=== PATIENT | female | born 1945 | race Caucasian/White ===

== ENCOUNTER 2019-12-03 08:59 | Outpatient (CLI) | payer MEDICARE, SELFPAY ==
[2019-12-03 09:16] LABS: Basophils Absolute Auto 0.1 K/mm3 (0.0-0.1); Basophils Percent Auto 1.5 % (0.2-1.2); Eosinophils Absolute Auto 0.2 K/mm3 (0-0.3); Eosinophils Percent Auto 3.6 % (0-4.4); Hemoglobin 14.9 g/dL (12.0-15.0); Immature Granulocyte Absolute 0.01 K/mm3 (0.00-0.031); Immature Granulocyte Percent A 0.2 % (0-0.5); Lymphocytes Absolute Auto 1.48 K/mm3 (0.9-3.2); Lymphocytes Percent Auto 27.7 % (18.3-44.2); Mean Corpuscular HGB Conc 32.4 g/dl (32-36); Mean Corpuscular Hemoglobin 32.7 pg (26-34); Mean Corpuscular Volume 101.1 fl (80-100); Mean Platelet Volume 9.9 fl (7.4-10.4); Monocytes Absolute Auto 0.6 K/mm3 (0.1-0.6); Monocytes Percent Auto 11.6 % (2.6-8.5); Neutrophils Percent Auto 55.4 % (45.5-73.1); Platelet Count Result 179 k/mm3 (150-375); Red Blood Count 4.55 M/mm3 (4.2-5.4); Red Cell Distribution Width 13.7 % (11.5-14.5); White Blood Count 5.3 K/mm3 (4.5-10.0)
[2019-12-03 09:19] LABS: Blood Urea Nitrogen 19 mg/dL (8-26); Carbon Dioxide 25 mmol/L (22-30); Chloride 108 mmol/L (98-109); Estimated Glomerular Filt Rate 54; Glucose 83 mg/dL (70-105); Potassium 3.9 mmol/L (3.5-4.9); Sodium 142 mmol/L (138-146)
== END 2019-12-03 09:00 | disposition home or self-care (01) ==
LOC: ANHLAB 09:01
PROVIDERS: Visit Provider Internal Medicine Hematology & Oncology
DX: D75.1 Secondary polycythemia (principal)
CPT/HCPCS: 36415; 80048; 85025

== ENCOUNTER 2020-12-01 10:23 | Outpatient (CLI) | payer MEDICARE, SELFPAY ==
[2020-12-01 10:39] LABS: Basophils Absolute Auto 0.1 K/mm3 (0.0-0.1); Basophils Percent Auto 1.5 % (0.2-1.2); Eosinophils Absolute Auto 0.2 K/mm3 (0-0.3); Eosinophils Percent Auto 3.4 % (0-4.4); Immature Granulocyte Absolute 0.02 K/mm3 (0.00-0.031); Immature Granulocyte Percent A 0.4 % (0-0.5); Lymphocytes Absolute Auto 1.33 K/mm3 (0.9-3.2); Lymphocytes Percent Auto 25.2 % (18.3-44.2); Mean Corpuscular HGB Conc 33.3 g/dl (32-36); Mean Corpuscular Hemoglobin 33.6 pg (26-34); Mean Corpuscular Volume 100.7 fl (80-100); Monocytes Absolute Auto 0.7 K/mm3 (0.1-0.6); Monocytes Percent Auto 13.3 % (2.6-8.5); Neutrophils Percent Auto 56.2 % (45.5-73.1); Platelet Count Result 184 k/mm3 (150-375); Red Blood Count 4.47 M/mm3 (4.2-5.4); Red Cell Distribution Width 14.3 % (11.5-14.5); White Blood Count 5.3 K/mm3 (4.5-10.0)
[2020-12-01 10:43] LABS: Blood Urea Nitrogen 17 mg/dL (8-26); Carbon Dioxide 28 mmol/L (22-30); Chloride 106 mmol/L (98-109); Estimated Glomerular Filt Rate > 60; Glucose 69 mg/dL (70-105); Sodium 143 mmol/L (138-146)
== END 2020-12-01 10:24 | disposition home or self-care (01) ==
LOC: ANHLAB 10:26
PROVIDERS: Visit Provider Internal Medicine Hematology & Oncology
DX: D75.1 Secondary polycythemia (principal)
CPT/HCPCS: 36415; 80048; 85025

== ENCOUNTER 2021-12-21 11:16 | Outpatient (CLI) | payer MEDICARE, SELFPAY ==
[2021-12-21 11:33] LABS: Basophils Absolute Auto 0.1 K/mm3 (0.0-0.1); Basophils Percent Auto 1.4 % (0.2-1.2); Eosinophils Absolute Auto 0.2 K/mm3 (0-0.3); Eosinophils Percent Auto 2.9 % (0-4.4); Hematocrit 46.3 % (37.0-47.0); Hemoglobin 14.9 g/dL (12.0-15.0); Immature Granulocyte Absolute 0.03 K/mm3 (0.00-0.031); Immature Granulocyte Percent A 0.5 % (0-0.5); Lymphocytes Absolute Auto 1.71 K/mm3 (0.9-3.2); Lymphocytes Percent Auto 30.8 % (18.3-44.2); Mean Corpuscular HGB Conc 32.2 g/dl (32-36); Mean Corpuscular Hemoglobin 33.8 pg (26-34); Mean Platelet Volume 10.3 fl (7.4-10.4); Monocytes Absolute Auto 0.6 K/mm3 (0.1-0.6); Neutrophils Percent Auto 53.4 % (45.5-73.1); Platelet Count Result 159 k/mm3 (150-375); Red Blood Count 4.41 M/mm3 (4.2-5.4); Red Cell Distribution Width 14.6 % (11.5-14.5); White Blood Count 5.6 K/mm3 (4.5-10.0)
[2021-12-21 16:16] LABS: Anion Gap 6 mmol/L (8-16); Blood Urea Nitrogen 20 mg/dL (7-17); Calcium 9.5 mg/dL (8.4-10.2); Carbon Dioxide 25 mmol/L (22-30); Chloride 107 mmol/L (98-107); Estimated Glomerular Filt Rate > 60; Glucose 92 mg/dL (65-110); Potassium 4.1 mmol/L (3.4-5.0); Sodium 138 mmol/L (137-145)
== END 2021-12-21 11:17 | disposition home or self-care (01) ==
PROVIDERS: Visit Provider Internal Medicine Hematology & Oncology
DX: D75.1 Secondary polycythemia (principal)
CPT/HCPCS: 36415; 80048; 85025; 85027

== ENCOUNTER 2022-12-21 10:52 | Outpatient (CLI) | payer MEDICARE, SELFPAY ==
[2022-12-21 11:06] LABS: Hematocrit 45.2 % (37.0-47.0); Hemoglobin 15.1 g/dL (12.0-15.0); Mean Corpuscular HGB Conc 33.4 g/dl (32-36); Mean Corpuscular Volume 104.9 fl (80-100); Mean Platelet Volume 9.5 fl (7.4-10.4); Platelet Count Result 185 k/mm3 (150-375); Red Blood Count 4.31 M/mm3 (4.2-5.4); Red Cell Distribution Width 14.4 % (11.5-14.5); White Blood Count 7.2 K/mm3 (4.5-10.0)
== END 2022-12-21 10:53 | disposition home or self-care (01) ==
LOC: ANHLAB 10:55
PROVIDERS: Visit Provider Internal Medicine Hematology & Oncology
DX: D75.1 Secondary polycythemia (principal)
CPT/HCPCS: 36415; 85027

== ENCOUNTER 2023-12-20 10:46 | Outpatient (CLI) | payer MEDICARE, SELFPAY ==
[2023-12-20 11:02] LABS: Basophils Absolute Auto 0.1 K/mm3 (0.0-0.1); Basophils Percent Auto 1.5 % (0.2-1.2); Eosinophils Absolute Auto 0.2 K/mm3 (0-0.3); Eosinophils Percent Auto 2.5 % (0-4.4); Hematocrit 43.4 % (37.0-47.0); Hemoglobin 14.5 g/dL (12.0-15.0); Immature Granulocyte Absolute 0.02 K/mm3 (0.00-0.031); Immature Granulocyte Percent A 0.3 % (0-0.5); Lymphocytes Absolute Auto 1.51 K/mm3 (0.9-3.2); Lymphocytes Percent Auto 25.5 % (18.3-44.2); Mean Corpuscular HGB Conc 33.4 g/dl (32-36); Mean Corpuscular Hemoglobin 34.9 pg (26-34); Mean Corpuscular Volume 104.6 fl (80-100); Mean Platelet Volume 9.9 fl (7.4-10.4); Monocytes Absolute Auto 0.7 K/mm3 (0.1-0.6); Monocytes Percent Auto 11.6 % (2.6-8.5); Neutrophils Absolute Auto 3.5 K/mm3 (1.3-6.7); Neutrophils Percent Auto 58.6 % (45.5-73.1); Platelet Count Result 161 k/mm3 (150-375); Red Blood Count 4.15 M/mm3 (4.2-5.4); Red Cell Distribution Width 13.7 % (11.5-14.5); White Blood Count 5.9 K/mm3 (4.5-10.0)
[2023-12-20 11:06] LABS: Blood Urea Nitrogen 18 mg/dL (8-26); Carbon Dioxide 25 mmol/L (22-30); Chloride 107 mmol/L (98-109); Estimated Glomerular Filt Rate 54; Glucose 90 mg/dL (70-105); Potassium 4.1 mmol/L (3.5-4.9); Sodium 142 mmol/L (138-146)
== END 2023-12-20 10:47 | disposition home or self-care (01) ==
PROVIDERS: Visit Provider Internal Medicine Hematology & Oncology
DX: D75.1 Secondary polycythemia (principal)
CPT/HCPCS: 36415; 80047; 85025

== ENCOUNTER 2024-12-19 09:38 | Outpatient (CLI) | payer MEDICARE, SELFPAY ==
[2024-12-19 09:51] LABS: Basophils Absolute Auto 0.1 K/mm3 (0.0-0.1); Basophils Percent Auto 1.5 % (0.2-1.2); Eosinophils Absolute Auto 0.2 K/mm3 (0-0.3); Eosinophils Percent Auto 2.9 % (0-4.4); Hematocrit 43.3 % (37.0-47.0); Hemoglobin 14.1 g/dL (12.0-15.0); Immature Granulocyte Absolute 0.02 K/mm3 (0.00-0.031); Immature Granulocyte Percent A 0.3 % (0-0.5); Lymphocytes Absolute Auto 1.36 K/mm3 (0.9-3.2); Lymphocytes Percent Auto 22.1 % (18.3-44.2); Mean Corpuscular HGB Conc 32.6 g/dl (32-36); Mean Corpuscular Hemoglobin 31.5 pg (26-34); Mean Corpuscular Volume 96.9 fl (80-100); Mean Platelet Volume 9.9 fl (7.4-10.4); Monocytes Absolute Auto 0.8 K/mm3 (0.1-0.6); Monocytes Percent Auto 12.9 % (2.6-8.5); Neutrophils Absolute Auto 3.7 K/mm3 (1.3-6.7); Neutrophils Percent Auto 60.3 % (45.5-73.1); Platelet Count Result 204 k/mm3 (150-375); Red Blood Count 4.47 M/mm3 (4.2-5.4); White Blood Count 6.1 K/mm3 (4.5-10.0)
--- OUTSIDE RECORDS SUMMARY | 2024-12-19 09:51 | XMS_ITS | Clinical Summary ---
Author Organization [facility] Address [address] [place] [address] Care Team Providers Care Composition Board Press Operator Name Role Phone Chris Lulu Connor DO Primary Care Provider [phone] Source Comments [facility],non-owned Affiliates and Associated Physician Practices is amultiple site organization consisting of ambulatory clinics and hospital sitesin [place], [place]. This disclosure is being madepursuant to the Care Everywhere program and may not contain all information available regarding this patient. Last updated 18.[facility] Allergies Active Allergy Reactions Criticality Noted Date Comments Alendronic Acid Other High 06/08/2011 SYNCOPE Nsaids Other 03/30/2024 Pineapple Other Low 07/12/2021 Mouth sores Medications * Be aware that medications may not be up to date on this document. Alwaysverify current medications with the patient. Medication Sig Dispensed Refills Start Date End Date Status ticagrelor (BRILINTA) 60 MG tablet Take 1 (one) tablet by mouth 2 times daily Swallow whole. Do not crush, chew, or open capsule. Active Aspirin 81 MG CAPS Take 81 mg by mouth once daily Active rosuvastatin (Crestor) 40 MG tablet 10/02/2022 Active levothyroxine (Synthroid) 88 MCG tablet Take 1 (one) tablet by mouth once daily 08/27/2023 Active ondansetron, disintegrating, (Zofran ODT) 4 MG tablet Take 1 (one) tablet by mouth every 6 hours as needed for Nausea/Vomiting Allow tablet to dissolve on the tongue 10 tablet 11/07/2023 Active Additional Information Patient not taking.Reported on 11/12/2024 acetaminophen (Tylenol) 500 MG capsule Take 2 (two) capsules by mouth every 6 hours as needed for Fever or Pain 30 capsule 11/07/2023 Active triamcinolone acetonide (Kenalog) 0.1 % ointmentIndicati ons:Lichen sclerosus Us with the nystatin ointment to vulvar skin 2-3 a week. 30 g 3 01/21/2024 Active nystatin (Mycostatin) 136672 UNIT/GM ointmentIndicati ons:Lichen sclerosus Use to vulvar skin with the Triamcinolone ointment 0.1% 2-3 times a week 30 g 3 01/21/2024 Active nitroGLYCERIN (Nitrostat) 0.4 MG tablet Dissolve 1 (one) tablet under the tongue as needed Active levothyroxine (Synthroid) 75 MCG tablet Take 1 (one) tablet by mouth once daily 12/01/2024 Active oxyCODONE, immediate release, (Roxicodone) 5 MG tabletIndication s:Postoperative state Take 1 (one) tablet by mouth every 6 hours as needed for Pain 5 tablet 12/16/2024 Active acetaminophen (Tylenol) 500 MG capsule Take 1 (one) capsule by mouth every 4 hours as needed for Fever or Pain 12/16/2024 Active docusate sodium (Colace) 100 MG capsule Take 1 (one) capsule by mouth once daily as needed for Constipation 15 capsule 12/16/2024 Active metoprolol succinate XL 24hr (TOPROL XL) 25 MG tablet Take 1 (one) tablet by mouth once daily 5 Discontinue d(List Clean-Up) HYDROcodone-acet aminophen (Durkee) 5-325 MG tablet 03/28/2024 5 Discontinue d(List Clean-Up) oxyCODONE, immediate release, (Roxicodone) 5 MG tablet Take 1 (one) tablet by mouth every 4 hours as needed 5 Discontinue d(List Clean-Up) Active Problems Problem Noted Date Diagnosed Date 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 03/17/2024 Primary osteoarthritis of right knee 02/26/2024 Venous insufficiency (chronic) (peripheral) 09/2023 Lichen sclerosus et atrophicus of the vulva 11/16 Vulvar cancer 06/08/2021 Postoperative state 06/07/2021 Hx of migraine headaches 05/19/2021 Hyperlipidemia 05/19/2021 Migraine headache 05/19/2021 Rosacea 05/19/2021 Erythrocytosis 11/13/2018 Dyslipidemia 10/22/2017 Essential hypertension 10/22/2017 Atypical chest pain 10/20/2017 Peripheral arterial occlusive disease 04/15/2017 Coronary atherosclerosis 12/20/2015 Dyspnea on exertion 12/20/2015 Hypothyroidism 12/20/2015 Encounters Date Type Department Care Team Description 12/16/2024 7:30 AM CDT Anesthesia Event [facility] [address] [place] [address] Frank Rocha MD 12/16/2024 7:15 AM CDT - 12/16/2024 9:15 AM CDT Surgery [facility] [address] [place] [address] Michael Ferguson MD PARTIAL VULVECTOMY 12/16/2024 5:22 AM CDT - 12/16/2024 10:50 AM CDT Hospital Encounter [facility] [address] [place] [address] Michael Ferguson MD Surgery General Discharge Disposition: Home or Self Care 12/16/2024 Travel 12/11/2024 9:00 AM CDT - 12/11/2024 11:59 PM CDT [facility] [address] [place] [address] Michael Ferguson MD Discharge Disposition: Home or Self Care 12/11/2024 Travel 11/25/2024 Telephone [facility] - SEARCH MANAGER [address] [place] [address] Michael Ferguson MD Surgery Scheduling 11/24/2024 Telephone [facility] - SEARCH MANAGER [address] [place] [phone] Michael Ferguson MD Results 11/12/2024 1:30 PM PIPELINE CONTROLLER Office Visit [facility] - SEARCH MANAGER [address] [place] [phone] Michael Ferguson MD Vulvar cancer (Primary Dx); Lichen sclerosus 11/12/2024 Travel from Last 3 Months Immunizations Name Administration Dates Next Due Covid Pfizer primary monoval ent 12+ yr 0.3mL Purple cap 11/18/2020,10/23/2020 Family History * Patient is adopted Medical History Relation Name Comments CAD (Coronary Artery Disease) Mother Heart Failure Mother Heart Failure Sister pneumonia at a ge 20 Relation Name Status Comments Mother Sister Social History Tobacco Use Types Packs/Day Years Used Date Smoking Tobacco: Former Smokeless Tobacco: Never Tobacco Cessation:Counseling Given: Not Answered Comments:50 YEARS AGO Alcohol Use Standard Drinks/Week Comments Yes 0 (1 standard drink = 0.6 oz pur e alcohol) occ PHQ-2 Answer Date Recorded Patient Health Questionnaire-2 Score 0 01/20/2024 Hunger Vital Sign Answer Date Recorded Within the past 12 months, y ou worried that your food would run out before you got the money to buy more. Never true 04/26/20 22 Within the past 12 months, t he food you bought just didn't last and you didn't have money to get more. Never true 04/26/2022 Sex and Gender Information Value Date Recorded Sex Assigned at Not on file Gender Identity Not on file Sexual Orientation Not on file Last Filed Vital Signs Vital Sign Reading Time Taken Comments Blood Pressure 126/61 12/16/2024 9:40 AM CDT Pulse 60 12/16/2024 9:40 AM CDT Temperature 36.6 C (97.8 F) 12/16/2024 9:10 AM CDT Respiratory Rate 16 12/16/2024 9:40 AM CDT Oxygen Saturation 99% 12/16/2024 9:40 AM CDT Inhaled Oxygen Concentration - - Weight 64 kg (141 lb) 12/16/2024 6:00 AM CDT Height 157.5 cm (5' 2 ) 12/16/2024 6:00 AM CDT Body Mass Index 25.79 12/16/2024 6:00 AM CDT Plan of Treatment Upcoming Encounters Date Type Department Care Team (Late st Contact Info) Description 12/29/2024 3:00 PM CDT Office Visit [facility] - SEARCH MANAGER [address] [place] [phone] Michael Ferguson MD [address] [place] [address] 02/23/2025 10:50 AM CDT Office Visit [facility] - SEARCH MANAGER [address] [place] [phone] Nano Yang APRN-ESTATE MANAGER [address] [place] [phone] 05/13/2025 1:30 PM CDT Office Visit [facility] - SEARCH MANAGER [address] [place] [phone] Michael Ferguson MD [address] [place] [address] Health Maintenance Due Date Last Done Comments Opioid Medication Agreement - Annual 1945 Opioid Medication Urine Drug Screening 1945 DTAP/TDAP/TD VACCINES (1 - Tdap) 1964 PNEUMOCOCCAL VACCINE 50+ (1 of 1 - PCV) 1995 ZOSTER VACCINE (1 of 2) 1995 Respiratory Syncytial Virus (RSV) Vaccine Pt: or over 60 yrs (1 - 1-dose 75+ series) 2020 COVID-19 VACCINE ( season) 2024 07/09/2023, 07/19/2021, 11/18/2020, Additional history exists DEPRESSION SCREENING 09/17/2024 01/21/2024 MEDICARE AWV CALENDAR YEAR 2024 INFLUENZA VACCINE (Season Ended) 2025 07/09/2023, 06/09/2022, 08/03/2021, Additional history exists BONE DENSITY TESTING Completed 11/23/2022, 04/17/20 18 HEPATITIS B VACCINE Aged Out No longe r eligible based on patient's age to complete this topic HIB VACCINE Aged Out No longer eligi ble based on patient's age to complete this topic HPV VACCINE Aged Out No longer eligi ble based on patient's age to complete this topic MENINGOCOCCAL (Group B) VACCINE SHARED DECISION-MAKING Aged Out No longer eligible based on patient's age to complete this topic MENINGOCOCCAL GROUPS A/C/Y/W VACCINE Aged Out No longer eligible based on patient's age to complete this topic Procedures Procedure Name Priority Date/Time Associated Diagnosis Comments CARDIAC RHYTHM STRIP ORDER 12/18/2024 6:13 PM CDT PATHOLOGY TISSUE EXAM (STL) Routine 12/16/2024 8:06 AM CDT Diagnosis unknown ENDOTRACHEAL TUBE NOTE Routine 7:50 AM CDT NE PART SIMPLE REMV VULVA 12/16/2024 7:15 AM CDT Diagnosis unknown COMPREHENSIVE METABOLIC PANEL Pre-Op 12/11/2024 9:14 AM CDT Preprocedural examination CBC W AUTO DIFFERENTIAL Pre-Op 12/11/2024 9:14 AM CDT Preprocedural examination PATHOLOGY TISSUE Routine 11/12/2024 2:11 PM PIPELINE CONTROLLER Vulvar cancer PROC VULVAR BIOPSY Routine 11/12/2024 2: 01 PM PIPELINE CONTROLLER Vulvar cancer from Last 3 Months Results * CARDIAC RHYTHM STRIP ORDER (12/18/2024 6:13 PM CDT) Narrative 12/18/2024 6:13 PM CDT Ordered by an unspecified provider. Scanned Document CARDIAC SERVICES ORD ERABLES * PATHOLOGY TISSUE EXAM (STL) (12/16/2024 8:06 AM CDT) Case Report Surgical Pathology Report Case: [id number] Authorizing Provider: Michael Ferguson MD Collected: 12/16/2024 08:06 AM Ordering Location: [facility] Received: 12/16/2024 08:54 AM Pathologist: Zhanna Batista MD Specimen: Vulva, left partial vulvectomy- stitch at 12 12/17/2024 3:50 PM [facility] Final Diagnosis Vulva, left, partial vulvectomy - Squamous cell carcinoma, HPV-independent, [id number], 1.2 mm in depth, without lymphvascular space invasion, extending to less than 1 mm from deep and approximately 11 o'clock tip margin - Differentiated vulvar intraepithelial neoplasia (dVIN), present at 6-9-12 o'clock margin 12/17/2024 3:50 PM [facility] Clinical History The patient is a 79-year-old woman. 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 Operative procedure: partial vulvectomy. 12/17/2024 3:50 PM [facility] Gross Description The requisition and specimen(s) are identified with the patient's name Debbie Giraldo . Received in formalin, specimen A, left partial vulvectomy , consists of a 2.1 x 0.8 cm skin ellipse, excised to a depth of 0.2 cm, which has a suture present at one tip denoting 12:00. The specimen is inked blue from 12:00 to 3:00 and 3:00 to 6:00, black from 6:00 to 9:00 and 9:00 to 12:00, and step sectioned. The cut surfaces show arizmendi-white, homogenous, subcutaneous tissue without abnormality. The specimen is entirely submitted in three cassettes labeled as follows: A1 12:00 tip, bisected A2 6:00 tip, bisected A3 transverse sections. RB 12/17/2024 3:50 PM [facility] Microscopic Description Microscopic examination substantiates the above diagnosis. p53 (single antibody stain procedure, controls adequate) shows mutant-pattern staining in the tumor cells and dysplasia. The morphologic and immunophenotypic features support the diagnosis. 12/17/2024 3:50 PM [facility] Pathologist Location at [facility] 12/17/2024 3:50 PM [facility] Disclaimer All histochemical and/or immunohistochemical results are interpreted with controls that demonstrate appropriate staining reactions before reporting results. Note on use of immunocytochemistry reagents: This test was developed and its performance characteristic determined by [facility], Department of Laboratory Medicine. It has not been cleared or approved by the U.S. Food and Drug Administration (FDA). The FDA has determined that such clearance or approval is not necessary. The test is used for clinical purpose. It should not be regarded as investigational or for research. This laboratory is certified to perform high complexity testing. The performance characteristics of the IHC/JASEN assays have been validated on formalin-fixed paraffin embedded tissues only. The assays have not been validated on decalcified tissues. Results should be interpreted with caution. 12/17/2024 3:50 PM CDT [facility] Embedded Images 12/17/2024 3:50 PM CDT [facility] Pathology/Cytolo gy ENTIRE VULVA / Unknown 12/16/2024 8:06 AM CDT 12/16/2024 8:54 AM CDT Comment:Pre-op diagnosis: Diagnosis unknown [R69] Michael Ferguson MD LAB - PATHOLOGY/CYTO LOGY ORDERABLES Performing Organization Address [facility]/State/[facility] Co de Phone Number [facility] [address] [place] [address] * ETT LINE PERFORMABLE (12/16/2024 7:50 AM CDT) Narrative Sabrina Mills APRN-CRNA - 12/16/2024 7:50 AM CDT Sabrina Mills APRN-CRNA 12/16/2024 7:50 AM Endotracheal Tube Placement: Patient Location: OR. Intubation Event Date/Time: 12/16/2024 7:41 AM Procedure: intubation ([id number]) Procedure Section: Sedation: under general anesthesia. Indications for Airway Management: anesthesia Induction: standard IV Patient Position: sniffing Mask Ventilation: easy. Blade Type: Vaibhav Blade Size: 3 Laryngoscopy View: grade 1 (full cords) Intubation Adjuncts: stylet Tube: endotracheal tube Placement: oral Tube type: cuff - inflated Tube Size (MM): 7 Depth of Insertion (CM): 22 Measured From: teeth Cuff volume (mL): 7 Cuff Inflated With: air Number of Attempts: 1. Placement Verified By: bilateral breath sounds, direct visualization, CO2 monitor and chest auscultation Tube secured with: adhesive tape. Dentition unchanged? Yes Difficult Airway? No. Procedure Start Time: 12/16/2024 7:41 AM. Staff Section Anesthesia Provider: Sabrina Mills APRN-CRNA, Performed the procedure Frank Rocha MD GENERAL ANESTHESIA O RDERABLES * (ABNORMAL) CBC W AUTO DIFFERENTIAL (12/11/2024 9:14 AM CDT) WBC 5.1 4.0 - 10.7 x10E9/L 12/11/2024 9:32 AM CDT [facility] RBC Count 4.46 3.90 - 5.20 x10E12/L 12/11/2024 9:32 AM CDT [facility] Hemoglobin 13.9 11.9 - 15.8 g/dL 12/11/2024 9:32 AM CDT [facility] Hematocrit 43.2 34.8 - 46.1 % 12/11/2024 9:32 AM CDT [facility] MCV 96.9 80.0 - 98.0 fL 12/11/2024 9:32 AM CDT [facility] MCH 31.2 26.7 - 33.6 pg 12/11/2024 9:32 AM CDT [facility] MCHC 32.2 31.7 - 36.3 g/dL 12/11/2024 9:32 AM CDT [facility] RDW-CV 13.7 11.3 - 14.8 % 12/11/2024 9:32 AM CDT [facility] Platelet Count 176 150 - 420 x10E9/L 12/11/2024 9:32 AM CDT [facility] MPV 10.0 7.8 - 11.4 fL 12/11/2024 9:32 AM CDT [facility] Neutrophil % 59.4 41.0 - 74.0 % 12/11/2024 9:32 AM CDT [facility] Lymphocyte % 24.7 17.0 - 47.0 % 12/11/2024 9:32 AM CDT [facility] Monocyte % 11.4(H) 3.0 - 11.0 % 12/11/2024 9:32 AM CDT [facility] Eosinophil % 2.7 0.0 - 7.0 % 12/11/2024 9:32 AM CDT [facility] Basophil % 1.4 0.0 - 1.6 % 12/11/2024 9:32 AM CDT [facility] Immature Granulocytes % 0.4 0.0 - 1.0 % 12/11/2024 9:32 AM CDT [facility] Neutrophil Absolute 3.03 1.60 - 7.50 x10E9/L 12/11/2024 9:32 AM CDT [facility] Lymphocyte Absolute 1.26 1.00 - 4.40 x10E9/L 12/11/2024 9:32 AM CDT [facility] Monocyte Absolute 0.58 0.15 - 1.00 x10E9/L 12/11/2024 9:32 AM CDT [facility] Eosinophil Absolute 0.14 0.00 - 0.60 x10E9/L 12/11/2024 9:32 AM CDT [facility] Basophil Absolute 0.07 0.00 - 0.13 x10E9/L 12/11/2024 9:32 AM CDT [facility] Blood BLOOD SPECIMEN / Unknown Venipuncture / Unknown 12/11/2024 9:14 AM CDT 12/11/2024 9:20 AM CDT Michael Ferguson MD LAB - HEMATOLOGY ORD ERABLES [facility] [address] [place], [place] [id number] * (ABNORMAL) COMPREHENSIVE METABOLIC PANEL (12/11/2024 9:14 AM CDT) [facility] Glucose 102(H) 70 - 99 mg/dL 12/11/2024 9:58 AM CDT [facility] Sodium 139 136 - 145 mmol/L 12/11/2024 9:58 AM CDT [facility] Potassium 4.4 3.5 - 5.1 mmol/L 12/11/2024 9:58 AM CDT [facility] Chloride 109(H) 98 - 107 mmol/L 12/11/2024 9:58 AM CDT [facility] CO2 23 22 - 29 mmol/L 12/11/2024 9:58 AM CDT [facility] Calcium 9.9 8.4 - 10.4 mg/dL 12/11/2024 9:58 AM T [facility] Anion Gap 7 6 - 16 mmol/L 12/11/2024 9:58 AM CDT [facility] BUN 16 7 - 26 mg/dL 12/11/2024 9:58 AM CDT [facility] Creatinine 0.85 0.57 - 1.11 mg/dL 12/11/2024 9:58 AM T [facility] Alkaline Phosphatase 105 40 - 150 U/L 12/11/2024 9:58 AM CDT [facility] ALT 12 6 - 57 U/L 12/11/2024 9:58 AM CDT [facility] AST 23 10 - 48 U/L 12/11/2024 9:58 AM T [facility] Protein Total 6.9 6.4 - 8.3 gm/dL 12/11/2024 9:58 AM CDT [facility] Albumin 3.8 3.4 - 5.0 gm/dL 12/11/2024 9:58 AM T [facility] Bilirubin Total 0.5 0.2 - 1.2 mg/dL 12/11/2024 9:58 AM [facility] eGFR by CKD-EPI 70(L) >=90 mL/min/1.7 3 m2 12/11/2024 9:58 AM [facility] Blood BLOOD SPECIMEN / Unknown Venipuncture / Unknown 12/11/2024 9:14 AM CDT 12/11/2024 9:20 AM CDT Michael Ferguson MD LAB - CHEMISTRY [facility]OC[facility] Organization Address City/State/ZIP Co de Phone Number [facility] [address] [place] [address] * PATHOLOGY TISSUE (11/12/2024 2:11 PM PIPELINE CONTROLLER) Case Report Surgical Pathology Report Case: [id number] Authorizing Provider: Michael Ferguson MD Collected: 11/12/2024 02:11 PM Ordering Location: [facility] - Received: 11/13/2024 11:05 AM SEARCH MANAGER Pathologist: Heidi Gleason MD Specimen: Vulva 11/19/2024 4:21 PM [facility] Final Diagnosis Left vulva, biopsy: - Differentiated vulvar intraepithelial neoplasia (dVIN) 11/19/2024 4:21 PM [facility] Microscopic Description and Comment The vulvar punch biopsy has thickened squamous epithelium with marked hyperkeratosis, rapid maturation toward the surface, and mild cytologic atypia. The p16 stain is negative, the p53 stain shows mutant pattern uniform strong staining of basal cells, and the Ki-67 stain shows uniform strong staining of basal cells. The controls stained appropriately. The histology and immunohistochemical stain results are those of HPV-independent differentiated vulvar intraepithelial neoplasia (dVIN). No invasion is seen. Minimal non-dVIN mucosa is present, so assessment of lichen sclerosus is not practical. 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 On 04/25/2022 ([id number]), she had a left partial radical vulvectomy showing recurrent HPV-independent squamous cell carcinoma in the background of dVIN and lichen sclerosus. On 10/22/2023 ([id number]), she had a left vulvar biopsy showing invasive HPV-independent squamous cell carcinoma and dVIN. On 11/06/2023 ([id number]), she had a third partial radical vulvectomy for recurrent HPV- independent squamous cell carcinoma, with a background of dVIN and lichen sclerosus. 11/19/2024 4:21 PM [facility] Gross Description The requisition and specimen(s) are identified with the patient's name, Debibe Giraldo. Received in formalin, specimen A , is a 0.4 x 0.3 cm arizmendi-white portion of presumed skin, excised to a maximum depth of 0.6 cm. The subcutaneous tissue consists of arizmendi-yellow, lobulated adipose tissue and soft tissue. The deep margin is inked blue and the specimen is bisected and submitted entirely as cassette A1. AL 11/19/2024 4:21 PM [facility] Pathologist Location at [facility] 11/19/2024 4:21 PM [facility] Disclaimer The performance characteristics of all immunohistochemical and indirect immunofluorescence stains (if any) cited in this report were determined by the Histopathology Laboratory of [facility]. Some of these tests were developed by our own laboratory and have not been cleared or approved by the US Food and Drug Administration. The FDA does not require this test to go through premarket FDA review. These tests are used for clinical purposes. They should not be regarded as investigational or for research. This laboratory is certified under the Clinical Laboratory Improvement Amendments (CLIA) as qualified to perform high complexity clinical laboratory testing. This case has been personally reviewed and interpreted by the attending (teaching) pathologist. 11/19/2024 4:21 PM [facility] Embedded Images 11/19/2024 4:21 PM [facility] Pathology/Cytolo gy ENTIRE VULVA / Unknown 11/12/2024 2:11 PM PIPELINE CONTROLLER 11/13/2024 11:05 AM [facility] Michael Ferguson MD LAB - PATHOLOGY/CYTO LOGY ORDERABLES Performing Organization Address City/State/[facility] Phone Number [facility] [address] [phone] * PROC VULVAR BIOPSY (11/12/2024 2:01 PM PIPELINE CONTROLLER) Narrative Michael Ferguson MD - 11/12/2024 2:01 PM PIPELINE CONTROLLER Michael Ferguson MD 11/12/2024 2:12 PM Vulvar Biopsy Procedure Note Pre-Operative Diagnosis: vulvar dystrophy Post-Operative Diagnosis: vulvar dystrophy Procedure Details: The patient was counseled on the risks, benefits, and alternatives to the procedure with emphasis on pain and bleeding. Her questions were answered to her satisfaction. She was placed in a dorsal lithotomy position. The areawith the lesion was cleaned with multiple swabs of Betadine (unless allergic in which hibiclens was used). The area was anesthetized with 5 cc of 1% lidocaine with epinephrine. When analgesia was achieved, a 4 mm [place] punch was used to obtain the biopsy left labia minora. The specimen was sent to pathology in formalin. The biopsy site was cauterized with silver nitrateand was assured to be hemostatic. The patient tolerated the procedure well. Condition: Good Complications: None Plan: The patient was instructed to watch for bleeding or infection, and to call immediately if any concerns. She will follow up in 3 weeks. Michael Ferguson MD PROCEDURE/MINOR SURG ICAL ORDERABLES from Last 3 Months Care Teams Composition Board Press Operator Relationship Specialty Start Date End Date Lulu Perez DO [address] [place] [address] PCP - General Nephrology 11/12/24
--- OUTSIDE RECORDS SUMMARY | 2024-12-19 09:51 | XMS_ITS | Clinical Summary ---
Author Organization [facility] Address [address] [place] [address] Care Team Providers Care Television Program Director Name Role Phone Osmany Winston MD Unavailable [phone] Tye Meredith MD Unavailable [phone] Malena Pérez Unavailable [phone] Lulu Perez DO Primary Care Provider [phone] Allergies Active Allergy Reactions Criticality Noted Date Comments Alendronate Syncope High 06/08/2011 SYNCOPE Nsaids (Non-Steroidal Anti-Inflammatory Drug) Other (See comments) Low 03/14/2024 PER MD DIRECTION DUE TO MEDICATION Pineapple Other (See comments) Low 07/12/2021 Mouth sores Mouth sores Medications triamcinolone (KENALOG) 0.1 % ointment Apply 1 Application topically once a week TWO TIMES PER WEEK 2 Active nystatin ointment Apply 1 Application topically once a week 2 TIMES PER WEEK 2 Active rosuvastatin (CRESTOR) 40 mg tablet Take 1 tablet (40 mg total) by mouth nightly 2 Active aspirin 81 mg enteric coated tablet Take 1 tablet (81 mg total) by mouth daily 3 Active levothyroxine (SYNTHROID) 50 mcg tablet Take 1 tablet (50 mcg total) 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 Active metoprolol XL (TOPROL-XL) 25 mg extended release tablet Take 1 tablet (25 mg total) by mouth nightly 2 Active ticagrelor (BRILINTA) 60 mg tablet Take 1 tablet (60 mg total) by mouth 2 (two) times a day Active HYDROcodone-hema taminophen (NORCO) 5-325 mg per tabletIndicatio ns:Pain Take 1-2 tablets by mouth every 4 (four) hours as needed for pain 40 tablet 4 Active meclizine (ANTIVERT) 25 mg tablet Take 1 tablet (25 mg total) by mouth 3 (three) times a day as needed for dizziness 30 tablet 4 Active Active Problems Problem Noted Date Diagnosed Date S/P total knee arthroplasty, right 04/11/2024 Arthritis of right knee 03/27/2024 Hyperlipidemia, unspecified 03/17/2024 Hypothyroidism, unspecified 03/17/2024 Primary osteoarthritis of right knee 02/26/2024 Venous insufficiency (chronic) (peripheral) 09/2023 Vulvar cancer 06/08/2021 Migraine headache 05/19/2021 Hyperlipidemia 05/19/2021 Dyslipidemia 10/21/2017 Essential hypertension 10/21/2017 Atypical chest pain 10/19/2017 Peripheral arterial occlusive disease 04/15/2017 Hypothyroidism 12/20/2015 Hypertension, benign 12/20/2015 Encounters Date Type Department Care Team Description 12/05/2024 10:00 AM CDT Office Visit [facility] [address] [place] [address] [place] [id number] Pepe Morfin MD S/P total knee arthroplasty, right, 03/27/2024 (Primary Dx) 12/05/2024 9:58 AM CDT - 12/05/2024 11:59 PM CDT Hospital Encounter [facility] [address] [place] [address] S/P total knee arthroplasty, right Discharge Disposition: Discharge to home or self care 09/25/2024 10:00 AM [facility] [place] [address] from Last 3 Months Surgical History Surgery Date Site/Laterality Comments CARDIAC CATHETERIZATION 09/29/2015 STENT X2 CORONARY ARTERY BYPASS GRAFT 09/17/2010 - 09/16/2011 RADICAL VULVECTOMY 10/18/2023 - 11/15/2023 Bilateral Medical History Medical History Date Comments Atherosclerosis of coronary artery Dyspnea on exertion Hypertension Hyperlipidemia Hypothyroidism Peripheral arterial occlusive disease Atypical chest pain RENATO-2 gene mutation Erythrocytosis Osteoarthritis Social History Tobacco Use Types Packs/Day Years Used Date Smoking Tobacco: Never Smokeless Tobacco: Never Tobacco Cessation:Counseling Given: Not Answered [facility] Utilities Answer Date Recorded In the past 12 months has th e [employer] ink, gas, oil, or water [facility] threatened to shut off services in your home? No 03/28/2024 Social Connection and Isolat ion Panel [NHANES] Answer Date Recorded In a typical week, how many times do you talk on the phone with family, friends, or neighbors? More than three times a week 03/28/2024 How often do you get togethe r with friends or relatives? More than three times a week 03/28/2024 How often do you attend chur or denominational services? More than 4 times per year 03/28/2024 Do you belong to any clubs o r organizations such as restorationist groups, unions, fraternal or athletic groups, or school groups? No 03/28/2024 How often do you attend meet ings of the clubs or organizations you belong to? Never 03/28/2024 Are you , , di vorced, , never , or living with a partner? 03/28/2024 AUDIT-C Answer Date Recorded Q1: How often do you have a drink containing alc ohol? Monthly or less 03/14/2024 Q2: How many drinks containi ng alcohol do you have on a typical day when you are drinking? 1 or 2 03/14/2024 Q3: How often do you have si x or more drinks on one occasion? Never 03/14/2024 Overall Financial Resource Strain (CARDIA) Answe r Date Recorded How hard is it for you to pa y for the very basics like food, housing, medical care, and heating? Not hard at all 03/28/2024 Hunger Vital Sign Answer Date Recorded Within the past 12 months, y ou worried that your food would run out before you got the money to buy more. Never true 03/28/20 24 Within the past 12 months, t he food you bought just didn't last and you didn't have money to get more. Never true 03/28/2024 PRAPARE - Transportation Answer Date Re corded In the past 12 months, has l ack of transportation kept you from medical appointments or from getting medications? No 03/17 In the past 12 months, has l ack of transportation kept you from meetings, work, or from getting things needed for daily living? No 03/28/2024 Housing Stability Vital Sign Answer Etienne e Recorded In the last 12 months, was t here a time when you were not able to pay the mortgage or rent on time? No 03/28/2024 In the past 12 months, how m any times have you moved where you were living? 1 03/28/2024 At any time in the past 12 m [facility], were you homeless or living in a fpc (including now)? No 03/28/2024 Personal Safety Answer Date Recorded Have you ever been in or are you currently in a harmful physical or emotional relationship or is someone making you feel afraid or unsafe? Denies 08/06/2024 Comments No Sex and Gender Information Value Date Recorded Sex Assigned at Not on file Legal Sex Female 7:34 PM [facility] Gender Identity Not on file Sexual Orientation Not on file Obstetrics History Para Term AB IAB SAB Ectopic Multiple Livin g Live Births 2 2 2 Date Outcome GA Total Labor Labor/2nd/3rd Weight Sex Type Anes PTL Eleni A1 A5 Name Clin Term Term Last Filed Vital Signs Vital Sign Reading Time Taken Comments Blood Pressure 149/81 08/06/2024 9:30 PM [facility] Pulse 57 08/06/2024 9:45 PM [facility] Temperature 37 C (98.6 F) 08/06/2024 6:27 PM [facility] Respiratory Rate 20 08/06/2024 9:45 PM [facility] Oxygen Saturation 98% 08/06/2024 9:45 PM [facility] Inhaled Oxygen Concentration - - Weight 50.8 kg (112 lb) 12/05/2024 10:11 AM CDT Height 160 cm (5' 3 ) 12/05/2024 10:11 AM CDT Body Mass Index 19.84 12/05/2024 10:11 AM CDT Plan of Treatment Health Maintenance Due Date Last Done Comments Depression Screening 1945 Hepatitis C Screening 1945 Hepatitis B Screening 1963 Well Visit 65+ 2010 Zoster Vaccine (2 of 3) 01/15/2012 11/20/2011 Covid-19 Vaccine (4 - 2023-2 5 season) 2024 07/19/2021, 11/18/2020, 10/23/2020 Osteoporosis Screening-Bone Density Scan 11/23/2024 11/23/2022, 11/23/2022, 04/17/2018 Fall Risk Assessment 03/28/2025 03/28/2024 Influenza Vaccine (Season Ended) 2025 08/03/2021, 06/28/2020, 06/17/2019, Additional history exists DTaP/Tdap/Td Vaccine (3 - Td or Tdap) 04/10/2027 04/10/2017, 10/31/2006 Pneumococcal vaccine 65+ Completed 09/15/2015, 08/18 Breast Cancer Screening-Mammogram Discontinued 02/26/2024, 08/23/2022, 10/14/2020, Additional history exists Medical Devices Implanted Type Area Accountant Clerk Device Identifier Shelf Expiration Date Model / Serial / Lot [employer] Simplex P Radiopaque Full Dose Cement Bone Sterile 6191-1-010 - [id number] Implanted:Qty: 1 on 03/27/2024 by Pepe Morfin MD at [facility] Bone Cement Right: Knee [employer] 05/17/2026 6191-1-010 / / [id number] Accountant Clerk Not Known Stent N/A: Heart [employer]/O rtho Journey Ii 64.5x59.7mm Bicruciate Stabilize Knee Right 4 [id number] - [id number] Implanted:Qty: 1 on 03/27/2024 by Pepe Morfin MD at [facility] Right: Knee [employer]/ Ortho [id number] 08/04/2033 [id number] / / [id number] [employer]/O rtho Journey Bicruciate Stabilize Knee Right 4 Baseplate Tibial [id number] - [id number] Implanted:Qty: 1 on 03/27/2024 by Pepe Morfin MD at [facility] Right: Knee [employer]/ Ortho [id number] 12/09/2033 [id number] / / [id number] [employer]/O rtho Journey Ii 12mm Bicruciate Stabilized Right 3-4 Insert Articular [id number] - [id number] Implanted:Qty: 1 on 03/27/2024 by Pepe Morfin MD at [facility] Right: Knee [employer]/ Ortho [id number] 04/29/2033 [id number] / / [id number] Journey Standard 29mm Resurfacing Round Patellar Component Implanted:Qty: 1 on 03/27/2024 by Pepe Morfin MD at [facility] Right: Patella [employer] 06/10/2033 [id number] / / [id number] Procedures Procedure Name Priority Date/Time Associated Diagnosis Comments XR KNEE RIGHT 3 VIEWS Schedule Routine, Read Routine (OP Routine) 12/05/2024 10:04 AM CDT S/P total knee arthroplasty, right DIFFERENTIAL AUTO Routine 09/25/2024 10: 20 AM [facility] T4, FREE Routine 09/25/2024 10:20 AM [facility] TSH Routine 09/25/2024 10:20 AM [facility] PTH Routine 09/25/2024 10:20 AM [facility] CBC WITH AUTO DIFFERENTIAL Routine 09/25/2024 10:20 AM [facility] VITAMIN D 25 HYDROXY Routine 09/25/2024 10:20 AM [facility] SCREENING MAMMOGRAM BILATERAL W SHARIF Schedule Routine, Read Routine (OP Routine) 02/26/2024 9:01 AM CDT Screening mammogram, encounter for DEXA AXIAL SKELETON BONE DENSITY 1 OR MORE SITES Schedule Routine, Read Routine (OP Routine) 11/23/2022 10:17 AM [facility] Osteopenia of multiple sites from Last 3 Months or Most Recently Relevant to Health Maintenance Results * XR Knee Right 3 Views (12/05/2024 10:04 AM CDT) Anatomical Region Laterality Modality Lower Extremities, Knee Right Computed Radiography 12/07/2024 12:4 3 PM CDT Narrative 12/07/2024 12:44 PM CDT EXAM DESCRIPTION: XR KNEE RIGHT 3 VIEWS REASON FOR STUDY: pain Stiffness and mild discomfort since RT TKR done 03/28/24 FINDINGS: Three views submitted with comparison 05/09/2024. Right total knee arthroplasty is in near anatomic alignment. No acute fracture or evidence of loosening. Moderate to large knee effusion is present. Arterial atherosclerosis noted. IMPRESSION: Right total knee arthroplasty in near anatomic alignment. Moderate to large right knee effusion. THIS IS AN ELECTRONICALLY VERIFIED FINAL REPORT 12/07/2024 12:44 PM - Electronically signed by Harpreet Perez M.D. T: Report ID: [id number] Reading Location: [id number] Procedure Note Harpreet Perez MD - 12/07/2024 EXAM DESCRIPTION: XR KNEE RIGHT 3 VIEWS REASON FOR STUDY: pain Stiffness and mild discomfort since RT TKR done 03/28/24 FINDINGS: Three views submitted with comparison 05/09/2024. Right total knee arthroplasty is in near anatomic alignment. No acute fracture or evidence of loosening. Moderate to large knee effusion is present. Arterial atherosclerosis noted. IMPRESSION: Right total knee arthroplasty in near anatomic alignment. Moderate to large right knee effusion. THIS IS AN ELECTRONICALLY VERIFIED FINAL REPORT 12/07/2024 12:44 PM - Electronically signed by Harpreet Perez M.D. T: Report ID: [id number] Reading Location: [id number] us Pepe Morfin MD IMG XR PROCEDURES Donya l Result * Differential, auto (09/25/2024 10:20 AM [facility]) Pathologist [facility] Neutrophil abs 3.2 1.5 - 6.5 K/cumm Imm gran abs 0.0 0.0 - 0.1 K/cumm [facility] Lymphocyte abs 1.5 0.8 - 3.3 K/cumm [facility] Monocyte abs 0.7 0.2 - 0.8 K/cumm [facility] Eosinophil abs 0.1 0.0 - 0.5 K/cumm [facility] Basophil abs 0.1 0.0 - 0.1 K/cumm [facility] Neutrophil pct 56.2 % [facility] Comment: Interpretive Data Percent cell count reference ranges are not reported, since discordance with absolute values may lead to misinterpretation of CBC data. Current Interpretive Data was last revised on 2017. Imm gran pct 0.2 % [facility] Comment: Interpretive Data Percent cell count reference ranges are not reported, since discordance with absolute values may lead to misinterpretation of CBC data. Current Interpretive Data was last revised on 2017. Lymphocyte pct 27.0 % [facility] Comment: Interpretive Data Percent cell count reference ranges are not reported, since discordance with absolute values may lead to misinterpretation of CBC data. Current Interpretive Data was last revised on 2017. Monocyte pct 12.7 % [facility] Comment: Interpretive Data Percent cell count reference ranges are not reported, since discordance with absolute values may lead to misinterpretation of CBC data. Current Interpretive Data was last revised on 2017. Eosinophil pct 2.5 % [facility] Comment: Interpretive Data Percent cell count reference ranges are not reported, since discordance with absolute values may lead to misinterpretation of CBC data. Current Interpretive Data was last revised on 2017. Basophil pct 1.4 % [facility] Comment: Interpretive Data Percent cell count reference ranges are not reported, since discordance with absolute values may lead to misinterpretation of CBC data. Current Interpretive Data was last revised on 2017. Blood 09/25/2024 10:2 0 AM [facility] 09/25/2024 10:22 AM [facility] Lulu Perez DO LAB BLOOD ORDERABLES Final Result Performing Organization Address City/[facility]/ZIP Co de Phone Number [address] [address] * (ABNORMAL) CBC with auto differential (09/25/2024 10:20 AM [facility]) Pathologist [facility] WBC 5.7 3.8 - 9.9 K/cumm Hgb 13.8 11.9 - 15.5 g/dL [facility] Hct 42.1 35.6 - 45.5 % [facility] Plt 179 150 - 400 K/cumm [facility] MPV 10.0 9.1 - 12.3 fL [facility] RBC 4.15 3.90 - 5.20 M/cumm [facility] MCV 101.4(H) 81.3 - 96.4 fL [facility] MCH 33.3 27.1 - 33.3 pg [facility] MCHC 32.8 32.3 - 35.7 g/dL [facility] RDW CV 14.0 11.1 - 14.9 % [facility] RDW SD 52.1(H) 35.7 - 48.1 fL [facility] NRBC abs 0.00 0.00 - 0.01 K/cumm [facility] Blood 09/25/2024 10:2 0 AM [facility] 09/25/2024 10:22 AM [facility] Lulu Perez DO LAB BLOOD ORDERABLES Final Result Performing Organization Address [facility]/ZIP Co de Phone Number [address] [place] [address] * Vitamin D 25 hydroxy (09/25/2024 10:20 AM [facility] Pathologist [facility] Vitamin D 25-OH 33.0 30.0 - 80.0 ng/mL Blood 09/25/2024 10:2 0 AM [facility] 09/25/2024 10:22 AM [facility] us Lulu Perez DO LAB BLOOD ORDERABLES Final Result Performing Organization Address City/[facility]/[place]IP [place] [address] [place] [address] * TSH (09/25/2024 10:20 AM [facility]) Thyroid Stimulating Hormone 1.77 0.30 - 4.20 mcIUnit/mL Blood 09/25/2024 10:2 0 AM [facility] 09/25/2024 10:22 AM [facility] Lulu Perez DO LAB BLOOD ORDERABLES Final Result ANTONY [address] [address] * T4, free (09/25/2024 10:20 AM [facility]) Free T4 1.46 0.90 - 1.70 ng/dL Blood 09/25/2024 10:2 0 AM [facility] 09/25/2024 10:22 AM [facility] Lulu Perez DO LAB BLOOD ORDERABLES Final Result Performing Organization Address [facility]/ZIP Co de Phone Number [address] [address] * PTH (09/25/2024 10:20 AM [facility]) Pathologist [facility] PTH 51 15 - 65 pg/mL Blood 09/25/2024 10:2 0 AM [facility] 09/25/2024 10:22 AM [facility] Lulu Perez DO LAB BLOOD ORDERABLES Final Result Performing Organization Address City/[facility]/ZIP Co de Phone Number [address] [address] * Screening Mammogram Bilateral W Sharif (02/26/2024 9:01 AM CDT) Anatomical Region Laterality Modality Breast Bilateral Mammography Impressions 02/26/2024 9:15 AM CDT BI-RADS ATLAS category (overall): 1 - Negative There is no mammographic evidence of malignancy. A 1 year screening mammogram is recommended. The patient has been or will be contacted. We recommend annual screening mammography for women at average risk of breast cancer beginning at age 40, based on guidelines of the [employer] [employer] (ACR Practice Parameter for the Performance of Screening and Diagnostic Mammography) and [place] [employer]. For women with and elevated risk of breast cancer, please refer to the ACR Practice Parameter for specific screening recommendations. The patient will be entered into a reminder system with a target due date of 1 year for her next screening exam. Narrative 02/26/2024 9:15 AM CDT Screening Mammogram Bilateral W Sharif: 02/26/24 The study was acquired using full field digital technology and interpreted from soft copy. 2D digital mammographic views, as well as 3D digital tomosynthesis were performed in the CC and MLO projections. CLINICAL: Screening mammogram, encounter for. No relevant medical history has been documented for this patient. No known family history of breast cancer. COMPARISONS: 08/23/2022 Screening Mammogram Bilateral W Sharif 10/14/2020 Screening Mammogram Bilateral W Sharif 08/06/2019 Screening Mammogram Bilateral W Sharif BREAST TISSUE: The breasts have scattered areas of fibroglandular density. FINDINGS: There is no new suspicious finding in either breast on mammogram. Julianna Sagastume NP IMG MAMMO PROCEDURES Final Resu lt * Dexa Axial Skeleton Bone Density 1 or 2 Site (11/23/2022 10:17 AM [facility]) Anatomical Region Laterality Modality Body N/A Mammography 11/23/2022 6:37 PM [facility] Narrative 11/23/2022 6:39 PM [facility] EXAM DESCRIPTION: DEXA AXIAL SKELETON BONE DENSITY 1 OR MORE SITES REASON FOR STUDY: 77 y/o year old F with given history of screening. Accountant Clerk/Model: Certain A (S/N [id number]) CLINICAL INFORMATION: Current height: 64 inches Maximum height: 66 inches Weight: 145 pounds Risk factors: Glucocorticoids and rheumatoid arthritis COMPARISON: 04/17/2018 FINDINGS: AP LUMBAR SPINE L1-L4: Total BMD is 0.918 g/cm2 T-score is -1.2 Most recent prior BMD was 0.974 g/cm2 There has been a 5.7% decrease in BMD which is statistically significant. LEFT HIP: Current Total BMD is 0.690 g/cm2 T-score is -2.1 Most recent prior Total BMD was 0.705 g/cm2 There has been a 2.1% decrease in BMD which is not statistically significant. Current femoral neck BMD is 0.588 g/cm2 T-score is -2.3 FRAX: 10 year risk for a major osteoporotic fracture is 31 %, 10 year risk for a hip fracture is 12 % IMPRESSION: Low bone mass REFERENCE: Bone mineral density: Normal (T-score above or = -1.0) Low bone mass (T-score between -1.0 and -2.5) replaces the previously used term osteopenia Osteoporosis (T-score = or below -2.5) Medical evaluation for secondary causes of low bone mineral density may be appropriate. FRAX is a World Health Organization validated fracture risk assessment tool that calculates a person's 10 year probability of a major osteoporosis related fracture and hip fracture. According to the National Osteoporosis Foundation guidelines, postmenopausal women and men age 50 or older with low bone mass and a 10 year probability of a major osteoporosis related fracture = or greater than 20% or a 10 year probability of a hip fracture = or greater than 3% should be considered for treatment. For further information, including treatment recommendations, please refer to the 2013 ISCD Official Positions (http://www.iscd.org) and the NOF's Clinician's Guide to Prevention and Treatment of Osteoporosis (http://www.nof.org/professionals/clinical-guidelines) THIS IS AN ELECTRONICALLY VERIFIED FINAL REPORT 11/23/2022 6:39 PM - Electronically signed by Geri Stauffer M.D. TW: DAR Report ID: [id number] Reading Location: [id number] Procedure Note Geri Stauffer MD - 11/23/2022 EXAM DESCRIPTION: DEXA AXIAL SKELETON BONE DENSITY 1 OR MORE SITES REASON FOR STUDY: 77 y/o year old F with given history ofscreening. Accountant Clerk/Model: Certain A (S/N [id number]) CLINICAL INFORMATION: Current height: 64 inches Maximum height: 66 inches Weight: 145 pounds Risk factors: Glucocorticoids and rheumatoid arthritis COMPARISON: 04/17/2018 FINDINGS: AP LUMBAR SPINE L1-L4: Total BMD is 0.918 g/cm2 T-score is -1.2 Most recent prior BMD was 0.974 g/cm2 There has been a 5.7% decrease in BMD which is statisticallysignificant. LEFT HIP: Current Total BMD is 0.690 g/cm2 T-score is -2.1 Most recent prior Total BMD was 0.705 g/cm2 There has been a 2.1% decrease in BMD which is not statisticallysignificant. Current femoral neck BMD is 0.588 g/cm2 T-score is -2.3 FRAX: 10 year risk for a major osteoporotic fracture is 31 %, 10 year risk for ahip fracture is 12 % IMPRESSION: Low bone mass REFERENCE: Bone mineral density: Normal (T-score above or = -1.0) Low bone mass (T-score between -1.0 and -2.5) replaces thepreviously used term osteopenia Osteoporosis (T-score = or below -2.5) Medical evaluation for secondary causes of low bone mineral density may be appropriate. FRAX is a World Health Organization validated fracture risk assessmenttool that calculates a person's 10 year probability of a major osteoporosisrelated fracture and hip fracture. According to the National OsteoporosisFoundation guidelines, postmenopausal women and men age 50 or older with low bonemass and a 10 year probability of a major osteoporosis related fracture = or greater than 20% or a 10 year probability of a hip fracture = or greaterthan 3% should be considered for treatment. For further information, including treatment recommendations, please referto the 2013 ISCD Official Positions (http://www.iscd.org) and the NOF's Clinician's Guide to Prevention and Treatment of Osteoporosis (http://www.nof.org/professionals/clinical-guidelines) THIS IS AN ELECTRONICALLY VERIFIED FINAL REPORT 11/23/2022 6:39 PM - Electronically signed by Geri Stauffer M.D. TW: DAR Report ID: [id number] Reading Location: [id number] Julianna Sagastume ELECTRO MECHANICAL DESIGNER IMG DXA PROCEDURES Final Result from Last 3 Months or Most Recently Relevant to Health Maintenance Insurance COUNT INCLUDES THE [facility] MEDICARE COUNT INCLUDES THE [facility] MEDICARE Advance Directives For more information, please contact: [phone] Documents on File Type Date Recorded Patient Telephone Technician Expl anation ADVANCE DIRECTIVE 07/03/2011 12:00 AM [facility]URSING TECH FINANCIAL/MEDICAL * Full Code (Latest Code Status on File) Date Activated Date Inactivated Comments 03/27/2024 10:09 AM 03/28/2024 6:37 PM Care Teams Television Program Director Relationship Specialty Start Date End Date Lulu Perez DO [address] [place] [address] PCP - General Internal Medicine 08/06/24 Osmany Winston MD [address] [facility] [address] [address] Consulting Physician Cardiovascular Disease 03/14/24 Tye Meredith MD [address] [facility] [address] [address] [place] [phone] Referring Physician Hematology 03/14/24 Malena Pérez PA [address] [facility] [address] [address] [place] [address] Physician Lens Assistant Orthopedic Surgery 03/27/24
--- OUTSIDE RECORDS SUMMARY | 2024-12-19 09:51 | XMS_ITS | Referral Summary ---
Author Organization [facility] Address [facility] [place] [address] Care Team Providers Care Boomboat Operator Name Role Phone Osmany Winston MD Unavailable [phone] Tye Meredith MD Unavailable Malena Pérez Unavailable [phone] Lulu Perez DO Primary Care Provider [phone] Encounters Date Type Department Care Team Description 12/05/2024 9:58 AM CDT - 12/05/2024 11:59 PM CDT Hospital Encounter [facility] [place] [address] S/P total knee arthroplasty, right Discharge Disposition: Discharge to home or self care 12/05/2024 10:00 AM CDT Office Visit [facility] Orthopedics and Sports [facility] [address] [place] [phone] Pepe Morfin MD S/P total knee arthroplasty, right, 03/27/2024 (Primary Dx) 09/25/2024 10:00 AM ELECTRIC METER TECHNICIAN Lab [facility] Lab [address] [place] [address] from Last 3 Months Allergies Active Allergy Reactions Criticality Noted Date [...] 1 tablet (50 mcg total) by mouth service worker before breakfast 2 Active nitroglycerin (NITROSTAT) 0.4 [...] disease 04/15/2017 Hypothyroidism 12/20/2015 Hypertension, benign 12/20/2015 Social History Tobacco Use Types Packs/Day Years Used Date Smoking Tobacco: Never Smokeless Tobacco: Never Tobacco Cessation:Counseling Given: Not Answered [facility] Utilities Answer Date Recorded In the past 12 months has th e electric, gas, oil, or water company threatened to shut off services in your [...] 03/28/2024 How often do you attend chur ch or sabianist services? More than 4 times per year 03/28/2024 Do you belong to any clubs o r organizations such as jainism groups, unions, fraternal or athletic groups, or [...] any time in the past 12 m the rehabilitation institute, were you homeless or living in a intermediate (including now)? No 03/28/2024 Personal Safety Answer Date Recorded Have you ever been in or are you currently in a harmful physical or emotional relationship or is someone making you feel afraid or unsafe? Denies 08/06/2024 Comments No Sex and Gender Information Value Date Recorded Sex Assigned at Not on file Legal Sex Female 7:34 PM ELECTRIC METER TECHNICIAN Gender Identity Not on file Sexual Orientation Not on file Last Filed Vital Signs Vital Sign Reading Time Taken Comments Blood Pressure 149/81 08/06/2024 9:30 PM ELECTRIC METER TECHNICIAN Pulse 57 08/06/2024 9:45 PM ELECTRIC METER TECHNICIAN Temperature 37 C (98.6 F) 08/06/2024 6:27 PM ELECTRIC METER TECHNICIAN Respiratory Rate 20 08/06/2024 9:45 PM ELECTRIC METER TECHNICIAN Oxygen Saturation 98% 08/06/2024 9:45 PM ELECTRIC METER TECHNICIAN Inhaled Oxygen Concentration - - Weight 50.8 kg (112 lb) 12/05/2024 10:11 AM CDT Height 160 cm (5' 3 ) 12/05/2024 10:11 AM CDT Body Mass Index 19.84 12/05/2024 10:11 AM CDT Plan of Treatment Not on file Medical Devices Implanted Type Area Drying Oven Tender Device Identifier Shelf Expiration Date Model / Serial / Lot [employer] Simplex P Radiopaque Full Dose Cement Bone Sterile 6191-1-010 - [id number] Implanted:Qty: 1 on 03/27/2024 by Pepe Morfin MD at [facility] Bone Cement Right: Knee [employer] 05/17/2026 6191-1-010 / / [id number] Drying Oven Tender Not Known Stent N/A: Heart [employer]/O rtho Journey Ii 64.5x59.7mm Bicruciate Stabilize Knee Right 4 [id number] - [id number] Implanted:Qty: 1 on 03/27/2024 by Pepe Morfin MD at [facility] Right: Knee [employer]/ Ortho [id number] 08/04/2033 [id number] / / [id number] [employer]/O rtho Journey Bicruciate Stabilize Knee Right 4 Baseplate Tibial [id number] - [id number] Implanted:Qty: 1 on 03/27/2024 by Pepe Morfin MD at [facility] Right: Knee [employer]/ Ortho [id number] 12/09/2033 [id number] / / [id number] [employer]/O rtho Journey Ii 12mm Bicruciate Stabilized Right 3-4 Insert Articular [id number] - [id number] Implanted:Qty: 1 on 03/27/2024 by Pepe Morfin MD at [facility] Right: Knee [employer]/ Ortho [id number] 04/29/2033 [id number] / / [id number] Journey Standard 29mm Resurfacing Round Patellar Component Implanted:Qty: 1 on 03/27/2024 by Pepe Morfin MD at [facility] Right: Patella [employer] 06/10/2033 [id number] / / [id number] Procedures Procedure Name Priority Date/Time Associated Diagnosis Comments XR KNEE RIGHT 3 VIEWS Schedule Routine, Read Routine (OP Routine) 12/05/2024 10:04 AM CDT S/P total knee arthroplasty, right DIFFERENTIAL AUTO Routine 09/25/2024 10: 20 AM ELECTRIC METER TECHNICIAN T4, FREE Routine 09/25/2024 10:20 AM ELECTRIC METER TECHNICIAN TSH Routine 09/25/2024 10:20 AM ELECTRIC METER TECHNICIAN PTH Routine 09/25/2024 10:20 AM ELECTRIC METER TECHNICIAN CBC WITH AUTO DIFFERENTIAL Routine 09/25/2024 10:20 AM ELECTRIC METER TECHNICIAN VITAMIN D 25 HYDROXY Routine 09/25/2024 10:20 AM ELECTRIC METER TECHNICIAN SCREENING MAMMOGRAM BILATERAL W SHARIF Schedule Routine, Read Routine (OP Routine) 02/26/2024 9:01 AM CDT Screening mammogram, encounter for DEXA AXIAL SKELETON BONE DENSITY 1 OR MORE SITES Schedule Routine, Read Routine (OP Routine) 11/23/2022 10:17 AM ELECTRIC METER TECHNICIAN Osteopenia of multiple sites from Last 3 [...] by Harpreet Perez M.D. T: Report ID: [id number] Reading Location: [id number] Procedure Note Harpreet Perez MD - 12/07/2024 [...] by Harpreet Perez M.D. T: Report ID: [id number] Reading Location: [place] [address] us Pepe Morfin MD IMG XR PROCEDURES Donya l Result * Differential, auto (09/25/2024 10:20 AM ELECTRIC METER TECHNICIAN) Pathologist [facility] Neutrophil abs 3.2 1.5 - 6.5 K/cumm Imm gran abs 0.0 0.0 - 0.1 K/cumm [facility] Lymphocyte abs 1.5 0.8 - 3.3 K/cumm [facility] Monocyte abs 0.7 0.2 - 0.8 K/cumm [facility] Eosinophil abs 0.1 0.0 - 0.5 K/cumm [facility] Basophil abs 0.1 0.0 - 0.1 K/cumm [facility] Neutrophil pct 56.2 % [facility] Comment: Interpretive Data Percent cell count reference ranges are not reported, since discordance with absolute values may lead to misinterpretation of CBC data. Current Interpretive Data was last revised on 2017. Imm gran pct 0.2 % [facility] Comment: Interpretive Data Percent cell count reference ranges are not reported, since discordance with absolute values may lead to misinterpretation of CBC data. Current Interpretive Data was last revised on 2017. Lymphocyte pct 27.0 % [facility] Comment: Interpretive Data Percent cell count reference ranges are not reported, since discordance with absolute values may lead to misinterpretation of CBC data. Current Interpretive Data was last revised on 2017. Monocyte pct 12.7 % [facility] Comment: Interpretive Data Percent cell count reference ranges are not reported, since discordance with absolute values may lead to misinterpretation of CBC data. Current Interpretive Data was last revised on 2017. Eosinophil pct 2.5 % [facility] Comment: Interpretive Data Percent cell count reference ranges are not reported, since discordance with absolute values may lead to misinterpretation of CBC data. Current Interpretive Data was last revised on 2017. Basophil pct 1.4 % [facility] Comment: Interpretive Data Percent cell count reference ranges are not reported, since discordance with absolute values may lead to misinterpretation of CBC data. Current Interpretive Data was last revised on 2017. Blood 09/25/2024 10:2 0 AM ELECTRIC METER TECHNICIAN 09/25/2024 10:22 AM ELECTRIC METER TECHNICIAN Lulu Perez DO LAB BLOOD ORDERABLES Final Result Performing Organization Address [facility] Co de Phone Number [facility] [address] [place] [address] * (ABNORMAL) CBC with auto differential (09/25/2024 10:20 AM ELECTRIC METER TECHNICIAN) WBC 5.7 3.8 - 9.9 K/cumm Hgb 13.8 11.9 - 15.5 g/dL [facility] Hct 42.1 35.6 - 45.5 % [facility] Plt 179 150 - 400 K/cumm [facility] MPV 10.0 9.1 - 12.3 fL [facility] RBC 4.15 3.90 - 5.20 M/cumm [facility] MCV 101.4(H) 81.3 - 96.4 fL [facility] MCH 33.3 27.1 - 33.3 pg [facility] MCHC 32.8 32.3 - 35.7 g/dL [facility] RDW CV 14.0 11.1 - 14.9 % [facility] RDW SD 52.1(H) 35.7 - 48.1 fL [facility] NRBC abs 0.00 0.00 - 0.01 K/cumm [facility] Blood 09/25/2024 10:2 0 AM ELECTRIC METER TECHNICIAN 09/25/2024 10:22 AM ELECTRIC METER TECHNICIAN Lulu Perez DO LAB BLOOD ORDERABLES Final Result Performing Organization Address [facility] Co de Phone Number [address] [place] [address] * Vitamin D 25 hydroxy (09/25/2024 10:20 AM ELECTRIC METER TECHNICIAN) Vitamin D 25-OH 33.0 30.0 - 80.0 ng/mL Blood 09/25/2024 10:2 0 AM ELECTRIC METER TECHNICIAN 09/25/2024 10:22 AM ELECTRIC METER TECHNICIAN us Lulu Perez DO LAB BLOOD ORDERABLES Final Result Performing Organization Address [facility] Co de Phone Number [address] [place] [address] * TSH (09/25/2024 10:20 AM ELECTRIC METER TECHNICIAN) Pathologist [facility] Thyroid Stimulating Hormone 1.77 0.30 - 4.20 mcIUnit/mL Blood 09/25/2024 10:2 0 AM ELECTRIC METER TECHNICIAN 09/25/2024 10:22 AM ELECTRIC METER TECHNICIAN us Lulu Perez DO LAB BLOOD ORDERABLES Final Result Performing Organization Address [facility] de Phone Number [address] [place] [address] * T4, free (09/25/2024 10:20 AM ELECTRIC METER TECHNICIAN) Pathologist [facility] Free T4 1.46 0.90 - 1.70 ng/dL Blood 09/25/2024 10:2 0 AM ELECTRIC METER TECHNICIAN 09/25/2024 10:22 AM ELECTRIC METER TECHNICIAN us Lulu Perez DO LAB BLOOD ORDERABLES Final Result Performing Organization Address [facility] de Phone Number [address] [place] [address] * PTH (09/25/2024 10:20 AM ELECTRIC METER TECHNICIAN) Pathologist [facility] PTH 51 15 - 65 pg/mL Blood 09/25/2024 10:2 0 AM ELECTRIC METER TECHNICIAN 09/25/2024 10:22 AM ELECTRIC METER TECHNICIAN us Lulu Perez DO LAB BLOOD ORDERABLES Final Result ANTONY [address] [facility] Department [place] [address] * Screening Mammogram Bilateral W Sharif (02/26/2024 [...] age 40, based on guidelines of the [employer] [employer] (ACR Practice Parameter for the Performance of Screening and Diagnostic Mammography) and [place] [employer]. For women [...] suspicious finding in either breast on mammogram. us Julianna Sagastume NP IMG MAMMO PROCEDURES Final Resu lt * Dexa Axial Skeleton Bone Density 1 or 2 Site (11/23/2022 10:17 AM ELECTRIC METER TECHNICIAN) Anatomical Region Laterality Modality Body N/A Mammography 11/23/2022 6:37 PM ELECTRIC METER TECHNICIAN Narrative 11/23/2022 6:39 PM ELECTRIC METER TECHNICIAN EXAM DESCRIPTION: DEXA AXIAL SKELETON BONE DENSITY 1 OR MORE SITES REASON FOR STUDY: 77 y/o year old F with given history of screening. Drying Oven Tender/Model: [employer] A (S/N [id number]) CLINICAL INFORMATION: Current height: 64 inches Maximum [...] Electronically signed by Geri Stauffer M.D. TW: TW Report ID: [id number] Reading Location: [id number] Procedure Note Geri Stauffer MD - 11/23/2022 EXAM DESCRIPTION: DEXA AXIAL SKELETON BONE DENSITY 1 OR MORE SITES REASON FOR STUDY: 77 y/o year old F with given history ofscreening. Drying Oven Tender/Model: [employer] A ([id number]/N [id number]) CLINICAL INFORMATION: Current height: 64 inches Maximum [...] Electronically signed by Geri Stauffer M.D. TW: TW Report ID: [id number] Reading Location: [id number] Julianna Sagastume NP IMG DXA PROCEDURES Final Result from Last 3 Months or Most Recently Relevant to Health Maintenance Insurance [facility] MEDICARE [facility] MEDIC[facility] Advance Directives For more information, please contact: [phone] Documents on File Type Date Recorded Patient Mannequin Sander And Finisher Expl anation ADVANCE DIRECTIVE 07/03/2011 12:00 AM [facility] SERVICE SUPERVISOR FINANCIAL/MEDICAL * Full Code (Latest Code Status on File) Date Activated Date Inactivated Comments 03/27/2024 10:09 AM 03/28/2024 6:37 PM Care Teams Boomboat Operator Relationship Specialty Start Date End Date Lulu Perez DO [address] [place] [address] PCP - General Internal Medicine 08/06/24 Osmany Winston MD [address] [facility] [address] [address] Consulting Physician Cardiovascular Disease 03/14/24 Tye Meredith MD [address] [facility] [address] [address] [place] [phone] Referring Physician Hematology 03/14/24 Malena Pérez PA [address] [facility] [address] [place] [address] [place] [address] Physician Car Packer Orthopedic Surgery 03/27/24
--- OUTSIDE RECORDS SUMMARY | 2024-12-19 09:51 | XMS_ITS | Encounter Summary ---
Author Organization [facility] Address [address] [facility] [address] [facility] [place] [address] Care Team Providers Care Rolled Gold Plater Name Role Phone GavinMiguelangelJuliannasilvestre Peralta APRN-CLINICAL EDUCATION ASSISTANT Primary Care Provider Lulu Perez DO Primary Care Provider [phone] Reason for Visit * Reason Onset Date Comments Results 07/18/2021 Encounter Details Date Type Department Care Team (Late Contact Info) Description 07/18/2021 Telephone [facility] [address] [place] [phone] Michael Ferguson MD [address] [facility] [address] [place] [address] Results Social History Tobacco Use Types Packs/Day Years Used Date Smoking Tobacco: Former Smokeless Tobacco: Never Comments:50 YEARS AGO Alcohol Use Standard Drinks/Week Comments Yes 0 (1 standard drink = 0.6 oz pur e alcohol) occ Sex and Gender Information Value Date Recorded Sex Assigned at Not on file Gender Identity Not on file Sexual Orientation Not on file documented as of this encounter Miscellaneous Notes * Telephone Encounter - Sailaja Stirnger - 07/18/2021 3:17 PM CDT Pt calling wanting biopsy results. Please advise. documented in this encounter Plan of Treatment Upcoming Encounters Date Type Department Care Team (Late Contact Info) Description 12/29/2024 3:00 PM CDT Office Visit [facility] - TANKROOM WORKER [address] [place] [phone] Michael Ferguson MD [address] [place] [address] 02/23/2025 10:50 AM CDT Office Visit [facility] - TANKROOM WORKER [address] [place] [phone] Nano Yang PRINTED CIRCUIT BOARD ASSEMBLER-CLINICAL EDUCATION ASSISTANT [address] [place] [phone] 05/13/2025 1:30 PM CDT Office Visit [facility] - TANKROOM WORKER [address] [place] [phone] Michael Ferguson MD [address] [place], [place] [phone] documented as of this encounter Visit Diagnoses Not on filedocumented in this encounter Care Teams Rolled Gold Plater Relationship Specialty Start Date End Date Julianna Alonso, PRINTED CIRCUIT BOARD ASSEMBLER-CLINICAL EDUCATION ASSISTANT [address] [place] [address] PCP - General Family Medicine 06/07/21 11/11/24 Lulu Perez DO [address] [place] [address] PCP - General Nephrology 11/12/24 documented as of this encounter
--- OUTSIDE RECORDS SUMMARY | 2024-12-19 09:51 | XMS_ITS | Encounter Summary ---
Author Organization [facility] Address [address] [facility] [place] [address] Care Team Providers Care Internet Marketer Name Role Phone Julianna Alonso Fabian OREILLY-PINEAPPLE PLANTATION MANAGER Primary Care Provider Lulu Perez DO Primary Care Provider [phone] Encounter Details Date Type Department Care Team (Late Contact Info) Description 05/20/2021 Lab Requisition [facility] Care DermPath Lab [address] [facility], [place] [phone] Amie Manzano MD [address] [facility] [address] [place] [address] Social History Tobacco Use Types Packs/Day Years Used Date Smoking Tobacco: Former Smokeless Tobacco: Never Alcohol Use Standard Drinks/Week Comments Yes 0 (1 standard drink = 0.6 oz pur e alcohol) Sex and Gender Information Value Date Recorded Sex Assigned at Not on file Gender Identity Not on file Sexual Orientation Not on file documented as of this encounter Plan of Treatment Upcoming Encounters Date Type Department Care Team (Late Contact Info) Description 12/29/2024 3:00 PM CDT Office Visit [facility] - DIRECTOR OF UNDERGRADUATE ADMISSIONS [address] [facility] [address] [place] [address] Michael Ferguson MD [address] [facility] [address] [place] [address] 02/23/2025 10:50 AM CDT Office Visit [facility] - DIRECTOR OF UNDERGRADUATE ADMISSIONS [address] [place] [phone] Nano Yang APRN-SHWETHA [address] [facility] [address] [place] [phone] 05/13/2025 1:30 PM CDT Office Visit [facility] - DIRECTOR OF UNDERGRADUATE ADMISSIONS [address] [place] [phone] Michael Ferguson MD [address] [facility] [address] [place] [address] documented as of this encounter Procedures Procedure Name Priority Date/Time Associated Diagnosis Comments DERMATOPATHOLOGY Routine 05/19/2021 12:0 0 AM CDT documented in this encounter Results * DERMATOPATHOLOGY (05/19/2021 12:00 AM CDT) Case Report Dermatopathology Report Case: [id number] Authorizing Provider: Amie Bailey MD Collected: 05/19/2021 12:00 AM Ordering Location: [facility] DermPath Lab Received: 05/20/2021 10:23 AM Pathologist: Olga Robles MD Specimen: Skin, left upper vulva 12:58 PM CDT DERMATOPATHOLOGY LABORATORY Final Diagnosis Specimen A. SKIN, left upper vulva: SQUAMOUS CELL CARCINOMA (C44.529) (see microscopic description) 12:58 PM CDT DERMATOPATHOLOGY LABORATORY Clinical History Lesion. 12:58 PM CDT DERMATOPATHOLOGY LABORATORY Gross Description Specimen A: Received is one formalin filled container labeled with the patient's name and designated left upper vulva. The specimen consists of a punch biopsy measuring [id number]. Jar 0. 12:58 PM CDT DERMATOPATHOLOGY LABORATORY Microscopic Description Specimen A. SKIN, left upper vulva: There are nests of squamous epithelial cells. The nests have only focal central keratinization and rare horn marita formation. Additional deeper sections were obtained and reviewed. 1 12:58 PM CDT DERMATOPATHOLOGY LABORATORY Disclaimer An external and internal positive and negative controls are appropriate for the histochemical, immunohistochemical and immunofluorescence stain(s) in this case (if any), except where stated explicitly. The performance characteristics of the stain(s) cited in this report were developed and its performance characteristic determined by the Dermatopathology Laboratory at [facility], directed by Dr. Al Robles. These tests need not be, and therefore are not, approved by the [place] Food and Drug Administration. The tests are used for clinical purposes. Billing Codes Specimen Charges Stain Charges 99340 1 1 12:58 PM CDT DERMATOPATHOLOGY LABORATORY Embedded Images 12:58 PM CDT DERMATOPATHOLOGY LABORATORY Pathology/Cytolog y TISSUE SPECIMEN FROM SKIN / Unknown 05/19/2021 05/20/2021 10:23 AM CDT Amie Manzano MD LAB - PATHOLOGY/CY TOLOGY ORDERABLES DERMATOPATHOLOGY LABORATORY [facility] Department of Dermatology [address], [address] [phone] documented in this encounter Visit Diagnoses Not on filedocumented in this encounter Care Teams Internet Marketer Relationship Specialty Start Date End Date Julianna Alonso APRN-PINEAPPLE PLANTATION MANAGER [address] [place] [address] PCP - General Family Medicine 06/07/21 11/11/24 Lulu Perez DO [address] [place] [address] PCP - General Nephrology 11/12/24 documented as of this encounter
--- OUTSIDE RECORDS SUMMARY | 2024-12-19 09:51 | XMS_ITS | Clinical Summary ---
Author Organization [facility] Address [facility] [place] [address] Care Team Providers Care Director Credit Risk Name Role Phone Debbie Pak, insurance underwriter Provider Unavailable Faye Pandey MD Unavailable [phone] Allergies No known active allergies Medications alendronate 70 MG tablet Take 1 tablet by mouth once a week. 3 Active aspirin (ASPIR-81) 81 MG Tab EC Take 1 tablet by mouth daily. 3 Active CALCIUM OR Take 2 tablets by mouth daily. 3 Active rosuvastatin (CRESTOR) 20 MG tablet Take 1 tablet by mouth daily. 3 Active [place]-3 Fatty Acids (SM FISH OIL) 1000 MG Cap take 1 tablet by mouth three times a day 3 Active levothyroxine (LEVOTHROID) 75 MCG tablet Take 1 tablet by mouth daily. 3 Active Fluocinonide 0.05 % Solution as directed every other day 3 Active metoprolol succinate 25 MG 24 hr tablet metoprolol succinate tablet extended release 24 hr 25 mg; take1 tablet daily; 0; -Feb-2014; Active; dose changes by PCP 6- 4 Active Active Problems Problem Noted Date Diagnosed Date Hyperlipidemia Hypertension, benign Coronary artery disease Migraine headache Hx of migraine headaches Hypothyroidism Rosacea Family History * Patient is adopted Medical History Relation Comments clot in leg Brother CHF Sister pneumonia Sister Relation Status Comments Brother (Age 66) Sister (Age 20) Social History Tobacco Use Types Packs/Day Years Used Date Smoking Tobacco: Former Cigarettes Comments:quit in the s Alcohol Use Standard Drinks/Week Comments Yes 0 (1 standard drink = 0.6 oz pur e alcohol) social drinker Comments No Sex and Gender Information Value Date Recorded Sex Assigned at Not on file Legal Sex Female 9:36 PM CDT Gender Identity Not on file Sexual Orientation Not on file 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 Not on file Not on file Last Filed Vital Signs Vital Sign Reading Time Taken Comments Blood Pressure 135/58 03/02/2022 8:55 AM CDT Pulse 65 03/02/2022 8:55 AM CDT Temperature 36.9 C (98.5 F) 03/02/2022 8:55 AM CDT Respiratory Rate 18 03/02/2022 8:55 AM CDT Oxygen Saturation 100% 03/02/2022 8:55 AM CDT Inhaled Oxygen Concentration - - Weight 61.7 kg (136 lb) 03/02/2022 8:55 AM CDT Height 160 cm (5' 3 ) 03/02/2022 8:55 AM CDT Body Mass Index 24.09 03/02/2022 8:55 AM CDT Plan of Treatment Health Maintenance Due Date Last Done Comments ASCVD Statin 1945 Hepatitis C 1963 Annual Medicare Wellness Visit 2010 Dexa Scan (General) 2010 Zoster Vaccines (2 of 3) 01/15/2012 11/20/2011 ASCVD LDL 11/08/2016 11/08/2015, 09/08/2015, 09/14/2014 RSV Immunization or 60+ Years (1 - 1-dose 75+ series) 2020 COVID-19 Vaccine (4 - 2023-2 5 season) 2024 07/19/2021, 11/18/2020, 10/23/2020 DTaP, Tdap and Td Vaccines ( 3 - Td or Tdap) 04/10/2027 04/10/2017, 10/31/2006 Pneumococcal Vaccine: 65+ Years Completed 09/15/2015, 09/13/2012 Meningococcal B Vaccine Aged Out No l onger eligible based on patient's age to complete this topic Meningococcal Vaccine Aged Out No daniel jon eligible based on patient's age to complete this topic RSV Immunizations Under 20 Months Aged Out No longer eligible b ased on patient's age to complete this topic Procedures Procedure Name Priority Date/Time Associated Diagnosis Comments LIPID PANEL Routine 11/08/2015 8:00 AM PETROLEUM REFINERY WORKER from Last 3 Months or Most Recently Relevant to Health Maintenance Results * (ABNORMAL) LIPID PANEL (11/08/2015 8:00 AM PETROLEUM REFINERY WORKER) LIPID INTERPRETATION 11/08/2015 9:54 PM [facility] Comment: NIH CONCENSUS REPORT RECOMMENDATIONS: ADULT CHILD LOW RISK: CHOLESTEROL <200 <170 TRIGLYCERIDE <150 --- HDL >=60 --- LDL <100 <110 BORDERLINE: CHOLESTEROL 200-239 170-199 TRIGLYCERIDE 150-199 --- HDL 40-59 --- LDL 100-159 110-129 HIGH RISK: CHOLESTEROL >=240 >=200 TRIGLYCERIDE >=200 --- HDL <40 --- LDL >=160 >=130 CHOL/HDL RATIO 3.4 0.0 - 4.5 11/08/2015 9:54 PM [facility] CHOLESTEROL 148 <200 mg/dL 11/08/2015 9:54 PM [facility] Comment: NOTE: Acetaminophen, N Acetyl p benzoquinone imine (NAPQI), N acetylcysteine (NAC), Metamizole, 4 Aminoantipyrine (4 AAP) and 4 Methylamino antipyrine (4 MAP) at high concentrations can cause falsely low results on Lactate, Uric Acid, Cholesterol, Triglyceride, HDL, and Direct LDL. HDL 44(L) >59 mg/dL 11/08/2015 9:54 PM [facility] DIRECT LDL 67 <100 mg/dL 11/08/2015 9:54 PM [facility] NON HDL CHOLESTEROL 104 <130 mg/dL 11/08/2015 9:54 PM [facility] Comment: NOTE: WHEN THE TRIGLYCERIDES ARE >200 mg/dL, NON HDL C IS A SECONDARY TARGET OF THERAPY, WITH A GOAL 30 mg/dL HIGHER THAN THE IDENTIFIED LDL C GOAL. TRIGLYCERIDES 184(H) <150 mg/dL 11/08/2015 9:54 PM PETROLEUM REFINERY WORKER [facility] VLDL CALCULATION 37 5 - 55 mg/dL 11/08/2015 9:54 PM PETROLEUM REFINERY WORKER [facility] 11/08/2015 8:00 AM PETROLEUM REFINERY WORKER 11/08/2015 9:18 PM PETROLEUM REFINERY WORKER us Generic Conversion Md [facility] Final R esult [facility] [address] [place] [address], from Last 3 Months or Most Recently Relevant to Health Maintenance Insurance [facility] MEDICARE [facility] MEDICARE [facility] MEDICARE Care Teams Director Credit Risk Relationship Specialty Start Date End Date Debbie Pak APNP, RN PCP - General FAMILY PRACTICE 03/17/16 Faye Pandey MD [address] [address] Guillaume Senior Linux Systems Engineer CARDIOVASCULAR DISEASE 03/17/16
--- OUTSIDE RECORDS SUMMARY | 2024-12-19 09:51 | XMS_ITS | Clinical Summary ---
Author Organization [facility] Address [address] [place] [address] Care Team Providers Care Gel Coat Sprayer Name Role Phone Lulu Perez DO Primary Care Provider [phone] Allergies Active Allergy Reactions Criticality Noted Date Comments Pineapple Other (See Comments) 07/12/2021 Mouth sores Medications aspirin (ASPIRIN LOW-STRENGTH) 81 mg Tablet, Chewable Aspirin Low Strength 81 mg chewable tablet Chew 1 tablet every day by oral route. Active levothyroxine 75 mcg tablet Take 75 mcg by mouth daily manager general. Active rosuvastatin (CRESTOR) 40 mg tablet Take 40 mg by mouth daily at bedtime. Active ticagrelor (BRILINTA) 60 mg Tablet Take 40 mg by mouth. Active clobetasol (TEMOVATE) 0.05 % Lotion Apply to affected area. Active calcium carbonate-antonia min D3 (CALTRATE 600 + D) 600 mg(1,500mg) -800 unit Tablet Take by mouth. Activ e metoprolol succinate (TOPROL XL) 25 mg Extended Release 24 hour tablet Take 25 mg by mouth 2 times daily. 5 9 Active flu vaccine trivalent 2018- (65 yr+)(PF)(FLUZO NE HIGH DOSE) 180 mcg/0.5 mL IM syringe Fluzone High-Dose 6424-5324 (PF) 180 mcg/0.5 mL intramuscular syringe Active omega 0-bxp-pqr-fish oil (Fish Oil) 100-160-1,000 mg Capsule every 24 hours. Act rosalie nystatin (MYCOSTATIN) 100,000 unit/gram Ointment nystatin 100,000 unit/gram topical ointment USE WITH THE TRIAMCINOLONE OINTMENT EVERY OTHER DAY TO VULVAR SKIN Active triamcinolone acetonide (KENALOG) 0.1 % Ointment USE WITH NYSTATIN OINTMENT EVERY OTHER DAY TO VULVAR SKIN 2 Active acetaminophen (TYLENOL) 325 mg tablet Take 650 mg by mouth every 6 hours as needed. 1 Active Active Problems Problem Noted Date Diagnosed Date Erythrocytosis 11/13/2018 Encounters Date Type Department Care Team Description 11/05/2024 External Device Data [facility] ABSTRACTION Provider, Abstract 10/14/2024 External Device Data [facility] ABSTRACTION Provider, Abstract 10/08/2024 External Device Data [facility] ABSTRACTION Provider, Abstract from Last 3 Months Social History Tobacco Use Types Packs/Day Years Used Date Smoking Tobacco: Former Cigarettes 0.3 5 0 11/13/1957 - 11/13/1962 Smokeless Tobacco: Never Tobacco Cessation:Counseling Given: Not Answered Alcohol Use Standard Drinks/Week Comments Yes 0 (1 standard drink = 0.6 oz pur e alcohol) rawly Comments No Sex and Gender Information Value Date Recorded Sex Assigned at Not on file Legal Sex Female 3:36 PM 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 Gender Identity Not on file Sexual Orientation Not on file Last Filed Vital Signs Vital Sign Reading Time Taken Comments Blood Pressure 113/69 12/20/2023 11:03 AM CDT Pulse 63 12/20/2023 11:03 AM CDT Temperature 36.1 C (97 F) 12/20/2023 11:03 AM CDT Respiratory Rate 14 12/20/2023 11:03 AM CDT Oxygen Saturation 97% 12/20/2023 11:03 AM CDT Inhaled Oxygen Concentration - - Weight 64.9 kg (143 lb) 12/20/2023 11:03 AM CDT Height 160 cm (5' 3 ) 12/21/2021 11:40 AM CDT Body Mass Index 25.33 12/21/2021 11:40 AM CDT Plan of Treatment Health Maintenance Due Date Last Done Comments DTAP/TDAP/TD VACCINES (1 - Tdap) 1964 PNEUMOCOCCAL VACCINE 50+ YEA RS (1 of 1 - PCV) 1995 ZOSTER VACCINE (1 of 2) 1995 RSV VACCINE (60+ or ) (1 - 1-dose 75+ series) 2020 INFLUENZA VACCINE (#1) 2024 COVID-19 Vaccine ( season) 05/18/202412/2020, 10/23/2020 Medicare [place]age ([place]) Prev entative Visit/Annual Wellness Visit 09/17/2024 OSTEOPOROSIS SCREENING Completed , 11/23/2022, 04/17/2018 Insurance [employer] PPO MCR Care Teams Gel Coat Sprayer Relationship Specialty Start Date End Date Lulu Perez DO [address] [place] [address] PCP - General Internal Medicine 12/19/24
--- OUTSIDE RECORDS SUMMARY | 2024-12-19 09:51 | XMS_ITS | Encounter Summary ---
Author Organization [facility] Address [address] [facility] [place] [address] Care Team Providers Care Home Care Manager Name Role Phone Chris Lulu Connor DO Primary Care Provider [phone] Reason for Visit * Reason Onset Date Comments Surgery Scheduling 11/25/2024 Encounter Details Date Type Department Care Team (Late st Contact Info) Description 11/25/2024 Telephone [facility] - ACCOUNTS PAYABLE PROCESSOR [address] [place] [address] Michael Ferguson MD [address] [place] [address] Surgery Scheduling Social History Tobacco Use Types Packs/Day Years [...] encounter Miscellaneous Notes * Telephone Encounter - Safia Stevenson - 11/25/2024 10:47 AM CDT Called patient to schedule surgery. Patient verbalized understanding of the details listed below. Date of Surgery: Monday, December 16, 2024 Operating Physician: Michael Ferguson Time to Arrive: 5:30 am estimated time Time of Procedure: 7:30 am estimated time Times are estimated. [facility] will call patient with finalized times closer to surgery/procedure no later than 1 day prior to DOS. Surgery Location: [facility]. [address] [place] [address]. [place] [address] Report to 1st Floor Same day surgery Place of Pre-Op Testing: [facility] Presurgical testing. [phone] Pre-op Tests: CBC and CMP TO BE COMPLETED 1-2 WEEKS PRIOR TO SURGERY. Post operative appointment: Sunday, December 29, 2024 Arrive by: 2:45 PM. Appointment time: 3:00 PM Location: [address] [place] [address], [address] [place] [address]. [place] [address] (6th Floor) documented in this encounter Plan of Treatment Upcoming Encounters Date Type Department Care Team (Late st Contact Info) Description 12/29/2024 3:00 PM CDT Office Visit [facility] - ACCOUNTS PAYABLE PROCESSOR [address] [place] [address] [place] [phone] Michael Ferguson MD [address] [address] 02/23/2025 10:50 AM CDT Office Visit [facility] - ACCOUNTS PAYABLE PROCESSOR [address] [place] [address] [place] [phone] Nano Yang APRN-ELECTROLESS PLATER [address] [facility] [address] [place] [address] 05/13/2025 1:30 PM CDT Office Visit [facility] - ACCOUNTS PAYABLE PROCESSOR [address] [facility] [address] [place] [phone] Michael Ferguson MD [address] [facility] [address] [place] [address] documented as of this encounter Visit Diagnoses Not on filedocumented in this encounter Care Teams Home Care Manager Relationship Specialty Start Date End Date Lulu Perez DO [address] [place] [phone] PCP - General Nephrology 11/12/24 documented as of this encounter
--- OUTSIDE RECORDS SUMMARY | 2024-12-19 09:52 | XMS_ITS | Patient Health Record ---
Author Organization 1 OF Deidra ashford [facility] Address [address] [facility] [address] [place] [address] Care Team Providers Care Drug Abuse Resistance Education Officer Name Role Phone Neal TITUS, Shara Primary Care Provider UnavailMoira Taylor Unavailable [phone] Reason For Referral No Information Medications Medication SIG (Take, Route, Fr equency, Duration) Notes Start Date End Date Status Clobetasol Propionate Active Brilinta Active Aspirin Active Metoprolol Succinate Active Levothyroxine Sodium Active Social History Tobacco Use: Social History Observation Description Date Details (start date - stop date) Former Smoker NA - NA Tobacco Use/Smoking Question Answer Notes Are you a former smoker How long has it been since you last smoked? > 10 years Plan Of Treatment No Information Insurance Providers Payer Name Payer Address Payer Phone Subscriber Number Group Number Insured Name Patient Relationship to Insured Coverage Start Date Coverage End Date [facility] [address] [address] [place] [address] [id number] Debbie Giraldo Self - patient is the insured Medical (General) History Medical History History ICD Code CHF, thyroid problems Surgical History Surgery Date(Month/Year)
--- OUTSIDE RECORDS SUMMARY | 2024-12-19 09:52 | XMS_ITS | Data Portability ---
Author Organization [facility] Address [address] [place] [address] Care Team Providers Care Magazine Designer Name Role Phone BABS JOHNSON Primary Care Provider [phone] REHANA VILLA Primary Care Coordinator MARIA ELENA MORFIN Orthopedic Surgeon Assessment No assessment recorded. Plan of Treatment Reminders Order Date Submit Date Provider Last Modified By Organization Details Last Modified Time Details Appointments None record ed. Lab CMP, serum or plasma [address] [facility], [address] [place] [address] [place], [address], 4 14:11:33 CBC w/ auto diff [address] [facility], [facility] [place], [address], 5 13:52:41 TSH + free T4, serum [address] [facility], [address] [place] [address] [place], [address], 5 15:46:59 lipid panel, serum 2023 024 frank [facility], [facility] [place], [address], 5 10:34:09 TSH + free T4, serum 2023 024 [facility] ([facility]), [address] [facility], [place], [address], 4 09:11:33 TSH + free T4, serum 2023 024 [facility], [address], [address], [place], [address], 4 10:37:39 lipid panel, serum [address] [facility], [address] [facility] [address], [address], [place], [address], 3 03:36:32 CMP, serum or plasma [address] [facility], [facility] [facility], [address], [place], [address], 3 03:36:32 TSH + free T4, serum [address] [facility], [address] [facility], [address], [place], [address], 3 10:37:14 lipid panel, serum [address] [facility], [address] [place] [address], [address], [place], [address], 3 12:37:10 Referral None record ed. Procedures None record ed. Surgeries None record ed. Imaging None record ed. Medication Orders metopr olol succin ate ER 25 mg tablet ,exten ded releas e 24 hr 2022 023 [id number], [address] [facility], [place], [place], [id number], 3 11:38:42 rosuva statin 40 mg tablet 2022 023 [id number], [address] [place], [id number], 3 11:38:41 levoth yroxin e 75 mcg tablet 2022 023 [email or web address] [facility] #[id number], [address] [place], [place], [id number], 4 11:41:53 Patient TargetsNo targets recorded. Patient Instructions Encounter Date Encounter Id Patient Instructions Last Modified By Organization Details Last Modified Time 08/20/2023 [id number] A healthy lifestyle: care instructions [email or web address] Not available 08/20/2023 11:38:33 dash diet: care instructions [email or web address] Not available 08/20/2023 11:38:33 How To Lower Blood Pressure [email or web address] Not available 08/20/2023 11:38:33 03/06/2024 [id number] Patient Health Questionnaire-9* [email or web address] Not available 03/06/2024 11:19:06 Reason for Referral None Reported. Results Created Date Observation Date Name Description Value Unit Range Abnormal Flag Note LastModifiedBy Organization Detail LastModifiedTime 02/16/2002/16/2023 LIPID PANEL cholesterol, total 179 mg/dL 100-19 9 Not Available [facility] ([facility]) [address] [facility], [place], [address], 02/16/2023 12:37:09 02/16/20 23 02/16/2023 LIPID PANEL triglyceride s 200 mg/dL 0-149 above high normal Not Available [facility] ([facility]) [address] [facility], [place], [address], 02/16/2023 12:37:09 02/16/20 23 02/16/2023 LIPID PANEL HDL cholesterol 55 mg/dL >39 Not Available [facility] ([facility]) [address] [facility], [place], [address], 02/16/2023 12:37:09 02/16/20 23 02/16/2023 LIPID PANEL VLDL cholesterol marleen 34 mg/dL 5-40 Not Available [facility] ([facility]) [address] [facility], [place], [address], 02/16/2023 12:37:09 02/16/20 23 02/16/2023 LIPID PANEL LDL chol calc (nih) 90 mg/dL 0-99 Not Available [facility] ([facility]) [address] [facility], [place], [address], 02/16/2023 12:37:09 08/20/20 23 08/20/2023 LIPID PANEL cholesterol, total 169 mg/dL 100-19 9 Not Available [facility] [address] [place] [address], [address], 08/21/2023 03:36:32 08/20/20 23 08/20/2023 LIPID PANEL triglyceride s 136 mg/dL 0-149 Not Available [facility] [address] [place], [address], 08/21/2023 03:36:32 08/20/20 23 08/20/2023 LIPID PANEL HDL cholesterol 62 mg/dL 40-999 Not Available [facility] [address] [place], [address], 08/21/2023 03:36:32 08/20/20 23 08/20/2023 LIPID PANEL VLDL cholesterol marleen 27 mg/dL 5-40 Not Available [facility] [address] [place], [address], 08/21/2023 03:36:32 08/20/20 23 08/20/2023 LIPID PANEL LDL chol calc (nih) 101 mg/dL 0-99 above high normal Not Available [facility] [address] [place], [address], 08/21/2023 03:36:32 08/20/20 23 08/20/2023 COMP. METAB OLIC PANEL (14) glucose 100 mg/dL 70-99 above high normal Not Available [facility] [address] [place], [address], 08/21/2023 03:36:32 08/20/20 23 08/20/2023 COMP. METAB OLIC PANEL (14) BUN 18 mg/dL 8-27 Not Available [facility] [address] [place], [address], 08/21/2023 03:36:32 08/20/20 23 08/20/2023 COMP. METAB OLIC PANEL (14) creatinine 1.13 mg/dL 0.76-1 .27 Not Available [facility] [address] [place] [address], [address], 08/21/2023 03:36:32 08/20/20 23 08/20/2023 COMP. METAB OLIC PANEL (14) eGFR 50 >=60 below low normal Units for eGFR value s are mL/mi n/1.7 3 The eGFR Calcu latio n has not been valid ated for patie nts under the age of 18. If test resul ts are displ ayed for a patie nt under the age of 18, disre carroll that value . Not Available [facility] [address] [place] [address], [address], 08/21/2023 03:36:32 08/20/20 23 08/20/2023 COMP. METAB OLIC PANEL (14) BUN/creatini ne ratio 16 10-28 Not Available [facility] [address] [place], [address], 08/21/2023 03:36:32 08/20/20 23 08/20/2023 COMP. METAB OLIC PANEL (14) sodium 141 mmol/ L 134-14 4 Not Available [facility] [address] [place], [address], 08/21/2023 03:36:32 08/20/20 23 08/20/2023 COMP. METAB OLIC PANEL (14) potassium 4.8 mmol/ L 3.5-5. 2 Not Available [facility] [address] [place], [address], 08/21/2023 03:36:32 08/20/20 23 08/20/2023 COMP. METAB OLIC PANEL (14) chloride 107 mmol/ L 96-106 above high normal Not Available [facility] [address] [place], [address], 08/21/2023 03:36:32 08/20/20 23 08/20/2023 COMP. METAB OLIC PANEL (14) carbon dioxide, total 24 mmol/ L 20-29 Not Available [facility] [address] [place], [address], 08/21/2023 03:36:32 08/20/20 23 08/20/2023 COMP. METAB OLIC PANEL (14) calcium 9.8 mg/dL 8.7-10 .3 Not Available [facility] [address] [place], [address], 08/21/2023 03:36:32 08/20/20 23 08/20/2023 COMP. METAB OLIC PANEL (14) protein, total 6.8 g/dL 6.0-8. 5 Not Available [facility] [address] [place], [address], 08/21/2023 03:36:32 08/20/20 23 08/20/2023 COMP. METAB OLIC PANEL (14) albumin 4.4 g/dL 3.8-4. 8 Not Available [facility] [address] [place], [address], 08/21/2023 03:36:32 08/20/20 23 08/20/2023 COMP. METAB OLIC PANEL (14) globulin, total 2.4 g/dL 1.5-4. 5 Not Available [facility] [address] [place] [address], [address], 08/21/2023 03:36:32 08/20/20 23 08/20/2023 COMP. METAB OLIC PANEL (14) A/G ratio 2.0 1.2-2. 2 Not Available [facility] [address] [place] [address], [address], 08/21/2023 03:36:32 08/20/20 23 08/20/2023 COMP. METAB OLIC PANEL (14) bilirubin, total 0.6 mg/dL 0.0-1. 2 Not Available [facility] [address] [place] [address], [address], 08/21/2023 03:36:32 08/20/20 23 08/20/2023 COMP. METAB OLIC PANEL (14) alkaline phosphatase 98 IU/L 44-121 Not Available [facility] [address] [place], [address], 08/21/2023 03:36:32 08/20/20 23 08/20/2023 COMP. METAB OLIC PANEL (14) AST (SGOT) 23 IU/L 0-40 Not Available [facility] [address] [place], [address], 08/21/2023 03:36:32 08/20/20 23 08/20/2023 COMP. METAB OLIC PANEL (14) ALT (SGPT) 16 IU/L 0-32 Not Available [facility] [address] [place] [address], [address], 08/21/2023 03:36:32 08/20/20 23 08/21/2023 TSH+F REE T4 TSH 10.900 uIU/m L 0.450- 4.500 above high normal Not Available [facility] ([facility]) [address] [facility], [place], [address], 08/21/2023 10:37:14 08/20/20 23 08/21/2023 TSH+F REE T4 T4,free(dire ct) 1.21 NG/dL 0.82-1 .77 Not Available [facility] ([facility]) [address] [place], [address], 08/21/2023 10:37:14 03/06/20 24 03/07/2024 TSH+F REE T4 TSH 0.219 uIU/m L 0.450- 4.500 below low normal Not Available [facility] ([facility]) [address] [place], [address], 03/07/2024 10:37:39 03/06/20 24 03/07/2024 TSH+F REE T4 T4,free(dire ct) 1.65 NG/dL 0.82-1 .77 Not Available [facility] ([facility]) [address] [place], [address], 03/07/2024 10:37:39 02/26/20 24 02/26/2024 MAMMO , scree corie, bilat eral No observ ation record ed. mitul [facility] [address] [place], [address], 02/26/2024 15:27:00 Result Notes None recorded. Problems Name Problem SNOMED Code Status Onset Date Resolution Date Notes Provider Name and Address Organization Details Recorded Time Knee pain Completed 02/27/2020 JENNA ENCARNACION Attn: Sancho armendariz,[address] [place], [address], [facility] 0 13:30:44 Overweight 151320439 Active 2022 Babs Johnson MD Attn: Sancho armendariz,[address] [place], [address], [facility] 3 11:10:27 Essential hypertensio n 47639053 Active 2022 Babs Johnson MD Attn: Sancho armendariz,[address] [place], [address], [place] [facility] 3 11:10:27 Coronary atheroscler osis 536247555 Active Babs Johnson MD Attn: Sancho armendariz,[address] [facility], [place], [address], [place] [facility] 3 11:10:27 Hyperlipide harriet 82532836 Active Babs Johnson MD Attn: Sancho armendariz,[address] [facility], [place], [address], [facility] 3 11:10:27 Hypothyroid ism 32184105 Active Babs Johnson MD Attn: Sancho armendariz,[address] [facility], [place], [address], [facility] 3 11:10:27 Hypertensiv e disorder 18614408 Active Babs Johnson MD Attn: Sancho armendariz,[address] [facility], [place], [address], [facility] 3 11:10:27 Problem Notes None recorded. Procedures Surgical History Date Name Laterality Status Provider Name and Address Organization Details Recorded Time 06/14/20 17 Colonoscopy with biopsy completed Yareli Eisenberg [facility] 06/25/2018 12:49:01 Appendectomy completed Latasha Bates MA [facility] 10/09/2017 12:02:44 Heart Surgery completed Latasha Bates MA [facility] 10/09/2017 12:02:53 Gastric Bypass completed Rupa Carter MA [facility] 09/21/2014 10:36:25 Imaging Results Imaging Date Name Status LastModified by Organiz atformerly [facility] Details LastModified Time 02/26/2024 MAMMO, screening, bilateral completed [email or web address], [address], 02/26/2024 15:27:00 Procedure Notes None recorded. Medical Equipment None Reported. Allergies Allergen ID Allergen Name Allergen Category Reaction Reaction Severity Criticality Documentation Date Start Date Code Code System Note Provider Name and Address Organization Details Recorded Time 462456 pineapple extract food other Not available Not available 08/20/20232020 65919 74 RxNorm Not Available Not Available Not Available 115145 alendrona te sodium medicatio n Not available Not available Not available 08/20/2023201015 2 RxNorm Other react ions and sever ities : 'Sync ope'. Not Available Not Available Not Available Medications Name Sig Start Date Stop Date Status Note LastModified by Organization Details LastModified Time metoprolo l succinate er 25 mg tb24 02/26 completed Not Available Not Available Not Available brilinta 60 mg tabs 02/26 completed Not Available Not Available Not Available rosuvasta tin calcium 40 mg tabs 02/26 completed Not Available Not Available Not Available senna tablets TAKE 2 TABLETS BY MOUTH ONCE DAILY. HOLD FOR LOOSE STOOLS OR DIARRHEA 12/05 completed Not Available Not Available Not Available levothyro xine sodium 75 mcg tabs 02/26 completed Not Available Not Available Not Available nystatin 100,000 unit/gram topical ointment APPLY TOPICALL Y TO VULVAR SKIN 2-3 TIMES PER WEEK WITH THE TRIAMCIN OLONE OINTMENT . active Not Available Not Available No t Available fluconazo le 150 mg tablet 10/09 completed Not Available Not Available Not Available hydrocodo ne 5 mg-acetam inophen 325 mg tablet TAKE 1 TO 2 TABLETS BY MOUTH EVERY 4 HOURS NEEDED FOR PAIN active Not Available Not Available No t Available senna 8.6 mg tablet TAKE 1 TABLET BY MOUTH TWICE DAILY active Not Available Not Available No t Available alendrona te 70 mg tablet 10/13 completed Not Available Not Available Not Available clobetaso l 0.05 % topical cream JODY THIN LAYER EXT AA 2 TIMES Q WK 03/03 completed Not Available Not Available Not Available penicilli n V potassium 500 mg tablet TAKE 1 TABLET BY MOUTH FOUR TIMES DAILY UNTIL ALL TAKEN 03/03 completed Not Available Not Available Not Available fluocinon jaimie 0.05 % topical ointment 10/24 completed Not Available Not Available Not Available peg-elect rolyte solution 420 gram oral solution 10/09 completed Not Available Not Available Not Available aspirin 81 mg tablet,de layed release Take 1 tablet every day by oral route. active Prescrib ed and managed by hematolo gy/oncol ogy Not Available Not Available Not Available levothyro xine 75 mcg tablet TAKE 1 TABLET BY MOUTH EVERY DAY active Not Available Not Available No t Available oxycodone -acetamin ophen 5 mg-325 mg tablet TAKE 1 TABLET BY MOUTH EVERY 4-6 HOURS NEEDED FOR PAIN 08/20 completed Not Available Not Available Not Available levothyro xine 88 mcg tablet TAKE 1 TABLET BY MOUTH EVERY DAY active Not Available Not Available No t Available amoxicill in 875 mg tablet 06/16 completed Not Available Not Available Not Available meclizine 25 mg tablet active Not Available Not Available Not Available levothyro xine 50 mcg tablet TAKE 1 TABLET BY MOUTH EVERY DAY 04/17 completed Not Available Not Available Not Available hydrocodo ne 7.5 mg-acetam inophen 325 mg tablet 04/08 completed Not Available Not Available Not Available triamcino lone acetonide 0.1 % topical ointment APPLY TOPICALL Y TO VULVAR SKIN 2-3 TIMES PER WEEK DIRECTED active Not Available Not Available No t Available nitroglyc lulu 0.4 mg sublingua l tablet active Not Available Not Available Not Available docusate sodium 100 mg capsule TAKE ONE CAPSULE BY MOUTH TWICE DAILY 12/05 completed Not Available Not Available Not Available metoprolo l succinate ER 25 mg tablet,ex tended release 24 hr TAKE 1 TABLET BY MOUTH EVERY DAY active Not Available Not Available No t Available clobetaso l 0.05 % topical ointment 08/30 completed Not Available Not Available Not Available ibuprofen 600 mg tablet TAKE 1 TABLET BY MOUTH EVERY 6 HOURS NEEDED FOR PAIN 12/05 completed Not Available Not Available Not Available polyethyl seth glycol 3350 17 gram/dose oral powder 06/09 completed Not Available Not Available Not Available ondansetr on 4 mg disintegr ating tablet DISSOLVE 1 TABLET ON THE TONGUE EVERY 6 HOURS NEEDED FOR NAUSEA AND VOMITING active Not Available Not Available No t Available amoxicill in 875 mg-potass ium clavulana te 125 mg tablet 10/24 completed Not Available Not Available Not Available oxycodone 5 mg tablet TAKE 1 TABLET BY MOUTH EVERY 4 HOURS NEEDED FOR PAIN active Not Available Not Available No t Available cyclobenz aprine 5 mg tablet TAKE 1 TABLET BY MOUTH THREE TIMES DAILY 06/09 completed Not Available Not Available Not Available Premarin 0.625 mg/gram vaginal cream APPLY 0.5 GM PER VAGINA ONCE WEEKLY 12/05 completed Not Available Not Available Not Available rosuvasta tin 40 mg tablet TAKE 1 TABLET BY MOUTH EVERY DAY active Not Available Not Available No t Available Crestor 20 mg tablet TAKE 1 TABLET BY MOUTH EVERY DAY 10/13 completed Not Available Not Available Not Available nitrofura ntoin monohydra te/macroc rystals 100 mg capsule TAKE 1 CAPSULE BY MOUTH EVERY DAY FOR 7 DAYS 06/09 completed Not Available Not Available Not Available [facility] 100,000 unit/gram topical powder APPLY TO AFFECTED AREA TWICE DAILY active Not Available Not Available No t Available Brilinta 90 mg tablet 1 tab bid 04/10 completed Not Available Not Available Not Available metoprolo l succ 25 mg-hydroc hlorothia zide 12.5 mg tablet,ex t.rel 24 hr active Not Available Not Available Not Available Fluzone High-Dose 2014- (PF) 180 mcg/0.5 mL intramusc ular syringe active Not Available Not Available Not Available Brilinta 60 mg tablet TAKE 1 TABLET BY MOUTH TWICE DAILY active Not Available Not Available No t Available Fluzone High-Dose 0002-8152 (PF) 180 mcg/0.5 mL intramusc ular syringe 04/10 completed Not Available Not Available Not Available Fluzone High-Dose 4379-7921 (PF) 180 mcg/0.5 mL intramusc ular syringe 10/09 completed Not Available Not Available Not Available Adult Multivita min Extra Vitamin D3 200 mcg chewable tablet Take by oral route. 10/24 completed 5,000 units daily Not Available Not Available Not Available Fluzone High-Dose 2736-1183 (PF) 180 mcg/0.5 mL intramusc ular syringe 10/24 completed Not Available Not Available Not Available Fluad 2018- 65yr up(PF)45 mcg(15 mcgx3)/0. 5 mL intramusc ular syringe 02/26 completed Not Available Not Available Not Available Fluzone High-Dose Quad (PF) 240 mcg/0.7 mL IM syringe ADM 0.7ML IM UTD 08/30 completed Not Available Not Available Not Available Vitals Date Recorded Body height Body mass index (BMI) Body weight Body temperature Respiratory rate Oxygen saturation Oxygen saturation in Arterial blood by Pulse oximetry Heart rate Systolic blood pressure Diastolic blood pressure Provider Name and Address Organization Details Last Updated DateTime 3 162.56 cm 26.2 kg/m2 24487.8 4 g 97.8 [degF] 16 /min 99 % 99 % 48 /min 137 mm[Hg] 72 mm[Hg] Michael Alexander MA [facility] 3 11:01:47 Date Recorded Body height Body mass index (BMI) Body weight Body temperature Heart rate Oxygen saturation Oxygen saturation in Arterial blood by Pulse oximetry Systolic blood pressure Diastolic blood pressure Provider Name and Address Organization Details Last Updated DateTime 4 162.56 cm 25.3 kg/m2 20991.5 2 g 97 [degF] 60 /min 97 % 97 % 120 mm[Hg] 80 mm[Hg] Shasta du MA [facility] 4 10:34:13 Date Recorded Body height Body mass index (BMI) Body weight Heart rate Oxygen saturation Oxygen saturation in Arterial blood by Pulse oximetry Body temperature Systolic blood pressure Diastolic blood pressure Provider Name and Address Organization Details Last Updated DateTime 4 162.56 cm 25.4 kg/m2 59582.5 9 g 65 /min 96 % 96 % 97.5 [degF] 123 mm[Hg] 71 mm[Hg] Shasta du MA [facility] 4 12:01:35 Date Recorded Body height Body mass index (BMI) Body weight Heart rate Body temperature Oxygen saturation Oxygen saturation in Arterial blood by Pulse oximetry Systolic blood pressure Diastolic blood pressure Provider Name and Address Organization Details Last Updated DateTime 4 162.56 cm 25 kg/m2 42654.7 7 g 68 /min 96.5 [degF] 97 % 97 % 113 mm[Hg] 71 mm[Hg] Johan fregoso [facility] 4 11:00:59 Social History Question Answer Notes LastModified by Organizat ion Details LastModified Time Tobacco Smoking Status Former Smoker 30 years ago DOMI Page, [facility] 09/21/2014 10:36:25 Do You Have An Advance Directive? No Information not available 10/09/2017 What Is Your Level Of Alcohol Consumption? Occasional Information not available 10/09/2017 Are You Blind Or Do You Have Difficulty Seeing? No Information not available 10/09/2017 What Is Your Level Of Caffeine Consumption? Moderate Information not available 10/09/2017 How Much Tobacco Do You Chew? None Information not available 10/09/2017 Are You Deaf Or Do You Have Serious Difficulty Hearing? No Information not available 10/09/2017 Which Illicit Or Recreational Drugs Have You Used? None Information not available 10/09/2017 Do You Or Have You Ever Used E-cigarettes Or Vape? Never Used Electronic Cigarettes Information not available 08/30/2020 Hard Of Hearing Or Deaf In One Or Both Ears? No Information not available 10/09/2017 Legally Blind In One Or Both Eyes? No Information not available 10/09/2017 Live Alone Or With Others? With Others Information not available 02/27/2020 What Was The Date Of Your Most Recent Tobacco Screening? 09/08/2024 [email or web address] Information not available 09/08/2024 Performs Monthly Self-breast Exam? No Information not available 10/09/2017 Seat Belts Used Routinely Yes Information not available 10/09/2017 Smoke Alarm In Home No Information not available 10/09/2017 Do You Or Have You Ever Used Smokeless Tobacco? Never Used Smokeless Tobacco Information not available 08/30/2020 How Much Tobacco Do You Smoke? No Information not available 10/09/2017 Do You Use Sunscreen Routinely? Yes Information not available 10/09/2017 On What Date Was Tobacco Cessation Counseling Provided? 08/30/2020 Information not available 08/30/2020 Sex: Female Functional Status Question Answer Note LastModified by Organization D etails LastModified Time Do you have difficulty walking or climbing stairs? No Information not available 10/09/2017 Do you have difficulty doing errands alone? No Information not available 10/09/2017 Are you able to care for yourself? Yes [email or web address] Information n ot available 10/24/2018 Do you have difficulty dressing or bathing? No Information not available 10/09/2017 Mental Status Question Answer Note LastModified by Organization D etails LastModified Time Do you have difficulty concentrating, remembering or making decisions? No Information no t available 10/09/2017 Family History Nothing Reported Notes:[facility] 10/09/17 BK Medical History Condition Response High Cholesterol Y Gynecological HistoryNo gynecological history recorded. Obstetrics History GPAL:G 0 P 0 0 0 0 Immunizations Vaccine Type Date Status Note Provider Nam e and Address Organization Details Recorded Time Influenza, split virus, quadrivalent, preservative 8 completed Not Available [facility] 03/11/2023 17:46:57 Influenza, split virus, quadrivalent, preservative 9 completed Not Available [facility] 03/11/2023 17:46:57 COVID-19, mRNA, LNP-S, PF, 30 mcg/0.3 mL dose 1 completed Not Available [facility] 03/11/2023 17:46:57 Influenza, adjuvanted, trivalent, PF 9 completed Babs Johnson MD Attn: [address] [place], [place], [address] [place] [address], [facility] 08/20/2023 11:10:50 Influenza, high-dose, quadrivalent, PF 0 completed Babs Johnson MD Attn: [address] [place], [place], [address] [place] [address], [place] [facility] 08/20/2023 11:10:50 Influenza, adjuvanted, quadrivalent, PF 1 completed Babs Johnson MD Attn: [address] [place], [place], [address] [place] [address], [facility] [facility] 08/20/2023 11:10:50 COVID-19, mRNA, LNP-S, PF, 30 mcg/0.3 mL dose 1 completed Babs Johnson MD Attn: Accounting,204 1 [facility], [place], [place], [address] [place] [address], [place] [facility] 08/20/2023 11:10:50 COVID-19, mRNA, LNP-S, PF, 30 mcg/0.3 mL dose 1 completed Babs Johnson MD Attn: Accounting,204 1 [facility], [place], [place], [address] [place] [address], [place] [facility] 08/20/2023 11:10:50 Pneumococcal conjugate PCV 13 5 completed Babs Johnson MD Attn: Accounting,204 1 [facility], [place], [place], [address] [place] [address], [facility] 08/20/2023 11:10:50 Influenza, high-dose, trivalent, PF 7 completed Babs Johnson MD Attn: Accounting,204 1 [facility], [place], [place], [address] [place] [address], [place] [facility] 08/20/2023 11:10:50 Influenza, high-dose, trivalent, PF 5 completed Babs Johnson MD Attn: Accounting,204 1 [facility], [place], [address] [place] [address], [place] [facility] 08/20/2023 11:10:50 Influenza, high-dose, trivalent, PF 8 completed Babs Johnson MD Attn: Accounting,204 1 [facility], [place], [address] [place] [address], [place] [facility] 08/20/2023 11:10:50 Influenza, high-dose, trivalent, PF 6 completed Babs Johnson MD Attn: Accounting,204 1 [facility], [place], [address] [place] [address], [place] [facility] 08/20/2023 11:10:50 Influenza, MDCK, trivalent, PF 3 completed Babs Johnson MD Attn: Accounting,204 1 [facility], [place], [address] [place] [address], [place] [facility] 08/20/2023 11:10:50 Influenza, high-dose, quadrivalent, PF 3 completed Babs Johnson MD Attn: Accounting,204 1 [facility], [place], [address] [place] [address], [facility] 08/20/2023 11:13:20 COVID-19, mRNA, LNP-S, PF, 50 mcg/0.5 mL 3 completed Babs Johnson MD Attn: Accounting,204 1 [facility], [place], [address] [place] [address], [facility] 08/20/2023 11:13:20 Tdap 7 completed Not Available [facility] 10/04/2019 02:33:54 pneumococcal polysaccharide PPV23 2 completed Not Available [facility] 03/11/2023 17:46:57 Tdap 7 completed Not Available [facility] 03/11/2023 17:46:57 zoster live 2 completed Babs Johnson MD Attn: Accounting,204 1 [facility], [place], [address] [place] [address], [facility] 08/20/2023 11:10:50 Influenza, split virus, quadrivalent, preservative 2 completed JENNA ENCARNACION Attn: Accounting,204 1 [facility], [place], [address] [place] [address], [facility] 06/09/2022 11:49:13 Tdap 7 completed Babs Johnson MD Attn: Accounting,204 1 [facility], [place], [address] [place] [address], [facility] 08/20/2023 11:13:20 Influenza, split virus, quadrivalent, preservative 7 completed Not Available [facility] 03/11/2023 17:46:57 Past Encounters Encounter ID Performer Location Encounter Start Date Encounter Closed Date Diagnosis/Indication Diagnosis SNOMED-CT Code Diagnosis ICD10 Code Diagnosis Note [id number] Malena Keith [facility] [address] [place] [address] 09/21/2014 10:22:59 09/21/2014 11:06:42 Adult health examination [id number] reviewed meds and lab send copy of lab to Dr. Weaver healthy lifestyle discussed [id number] [address] [address] 11/17/2014 10:38:38 11/17/2014 11:19:17 Knee pain [id number] will get x-ray and ortho referral try Ibuprofen prn [id number] Malena Yan [address] [address] 03/17/2015 11:07:16 03/17/2015 13:17:29 Coronary atherosclerosis [id number] cont meds--disc ussed diet and exercise Hyperlipidemia 70318229 reviewed lab and meds--work on diet--will repeat lab in Aug [id number] cont meds [id number] Debbie Pak [address] [address] 09/15/2015 10:56:26 09/15/2015 11:43:06 Hyperlipidemia 63521579 E78.0 will need lab in about 6mo Coronary atherosclerosis 279496748 I25.10 cont meds work on exercise as able keep f/u w/ Card [id number] Debbie Pak [address] [address] 04/12/2016 11:56:41 04/14/2016 03:47:42 Adult health examination 664211458 Z00.00 reviewed lab and meds--no changes. needs colonoscop y but will wait until she is off Brillinta in 6 mo. cont healthy lifestyle Coronary atherosclerosis 815493597 I25.10 reviewed lab and meds--cont healthy lifestyle keep f/u w/ Card [id number] Debbie Pak [address] [address] 10/13/2016 09:44:47 11/17/2016 09:22:21 Hyperlipidemia 07993722 E78.5 reviewed lab and meds--cont healthy lifestyle Coronary atherosclerosis 378493090 I25.10 cont meds and cont w./ card--has appt soon [id number] LATOYA AVERY NP [facility] [address] [address] 01/01/2017 15:13:48 02/14/2017 13:12:53 Eruption 433177661 R21 - s[place]p trip [place] the [place] last - No systemic symptoms - Resolving with moisturing creams at home - Encourage continued use of same cream and to continue moisturize r - Encouraged to make note of any changes in habit - laundry detergents , creams, lotions, soaps, foods, medication s, contacts, etc. - F/U if symptoms worsen - consider treatment with steroids [id number] Eliezer Dow MD [address] [address] 04/10/2017 14:52:51 04/12/2017 11:49:41 Hypertensive disorder 33232426 I10 Hypothyroidism 05228842 E03.9 Hyperlipidemia 69441333 E78.5 Coronary arteriosclerosis 27822689 I25.[address] Sarah Whelan next week, will find out about brilinta, so we can decide about screening colonoscop y, which she is due at this time. Impaired f asting glycemia 905709712 R73.01 Monitor. Active or passive immunization 608771253 Z23 [id number] Eliezer Dow MD [address] [address] 10/09/2017 11:28:14 10/09/2017 13:33:29 Hypertensive disorder 29748013 I10 Hypothyroidism 98233049 E03.9 Hyperlipidemia 45250990 E78.5 Coronary arteriosclerosis 75595467 I25.10 Had colonoscop y in may was off brilinta for 2 weeks, 10 days before, and 4 days following. Impaired f asting glycemia 630632670 R73.01 Monitor. [id number] Nano Bradshaw MD [address] [address] 04/08/2018 12:22:34 04/15/2018 15:24:18 Hypothyroidism 69816367 E03.9 continue levothyrox ine Postmenopausal state 764 05708 Z78.0 patient at risk for osteoporos is Coronary arteriosclerosis 55538435 I25.10 Hypertensive disorder 38 463147 I10 [id number] Nano Bradshaw MD [address] [address] 05/08/2018 11:20:19 05/17/2018 11:14:06 Diverticulitis of sigmoid colon 828810596 K57.32 Patient states symptoms are improving but still present; may need colonoscop y. [id number] Nano Bradshaw MD [address] [address] 10/24/2018 11:23:10 10/30/2018 10:48:49 Erythrocytosis 335581378 D75.1 Impacted c erumen of bilateral ears 9846211093 272890 H61.23 irrigation used to remove wax; hearing improved. Abnormal f inding on evaluation procedure 343833749 Z00.01 Medicare wellness exam. Standardiz ed adult depression screening tool completed [id number] 53846 Z13.89 patient does not appear to be significan tly depressed. [id number] [facility] [address] [address] 10/28/2018 14:24:33 10/29/2018 11:58:31 Impacted cerumen of bilateral ears 0106842955 128136 H61.23 [id number] JENNA ENCARNACION [address] [address] 06/30/2019 10:52:26 07/01/2019 12:51:07 Hypertensive disorder 02869146 I10 - Patient stable on Metoprolol - At goal <120/80- Continue as prescribed Hypothyroidism 05506487 E03.9 - Patient stable on Levothyrox ine- Continue as prescribed - Patient will return for labs Hyperlipidemia 78746800 E78.5 - Patient stable on Rosuvastat in- Continue as prescribed - Patient will return for fasting labs- Discussed low fat diet Erythrocytosis 378423166 D75.1 - Patient sees hematology /oncology every 3 months [id number] [facility] [address] [address] 07/04/2019 09:42:43 07/07/2019 12:43:53 Endocrine/metabolic screening 816874741 Z13.357 [id number] JENNA ENCARNACION [address] [address] 02/27/2020 11:13:31 03/01/2020 06:50:51 Hypertensive disorder 09695871 I10 - Patient stable on Metoprolol - Continue as prescribed - Sees cardiologi st once yearly- Denies problems with chest pain, SOB, palpitatio ns, edema or dizziness Hypothyroidism 64684854 E03.9 - Patient stable on Levothyrox ine- Continue as prescribed - Labs will be drawn with next office visit Hyperlipidemia 41124750 E78.5 - Patient stable on Rosuvastat in- Continue as prescribed - Patient will get fasting labs with next office visit- Discussed low fat diet Depression screening 171 880747 Z13.31 - Negative depression screening Coronary atherosclerosis 868220818 I25.119 - Patient sees cardiologi st once yearly [id number] JENNA ENCARNACION [address] [address] 08/30/2020 09:04:07 08/31/2020 13:15:48 Hypertensive disorder 16188483 I10 - Patient stable on Metoprolol - Continue as prescribed - Sees cardiologi st once yearly- Denies problems with chest pain, SOB, palpitatio ns, edema or dizziness Hypothyroidism 09632915 E03.9 - Patient stable on Levothyrox ine- Continue as prescribed - Labs orders sent to hospital. Patient advised she needs to fast Hyperlipidemia 11011517 E78.5 - Patient stable on Rosuvastat in- Continue as prescribed - Labs orders sent to hospital. Patient advised she needs to fast- Discussed low fat diet Depression screening 171 544598 Z13.31 - Negative depression screening Prediabetes 415188011 R7 3.03 - Last A1C was 5.8%- Fasting lab order sent to hospital [id number] JENNA ENCARNACION [address] [address] 03/03/2021 10:39:43 03/04/2021 12:12:59 Hypertensive disorder 47783339 I10 - Patient stable on Metoprolol - Continue as prescribed - Sees cardiologi st once yearly- BP at goal <130/80- Denies problems with chest pain, SOB, palpitatio ns, edema or dizziness Hypothyroidism 04037419 E03.9 - Patient stable on Levothyrox ine- Continue as prescribed - Labs completed in August with normal results- Will check again with next visit Hyperlipidemia 62138127 E78.5 - Patient stable on Rosuvastat in- Continue as prescribed - Discussed low fat diet- Labs will be completed with next office visit Coronary atherosclerosis 234550059 I25.119 - Patient sees cardiologi st once yearly Depression screening 171 667703 Z13.31 - Negative depression screening [id number] JENNA ENCARNACION [address] [address] 12/05/2021 10:39:06 12/06/2021 13:56:29 Hypertensive disorder 47754659 I10 - Patient stable on Metoprolol - Continue as prescribed - Sees cardiologi st once yearly- BP at goal <130/80- Denies problems with chest pain, SOB, palpitatio ns, edema or dizziness Hypothyroidism 04044965 E03.9 - Patient stable on Levothyrox ine- Continue as prescribed - She reports cardiologi st just checked labs. Will check and see if TSH was included Hyperlipidemia 34059956 E78.5 - Patient stable on Rosuvastat in- Continue as prescribed - Discussed low fat diet- She reports cardiologi st just completed labs. Will get copies. Coronary atherosclerosis 265787501 I25.119 - Patient sees cardiologi st once yearly Depression screening 171 956707 Z13.31 - Negative depression screening Screening mammography 24 539957 Z12.31 - Patient due for mammogram- Order created today Osteopenia 759673058 M85 .80 - Patient due for DEXA- Ordered today and given to patient Backache 742955051 M54.9 - Patient reports a fall last week where she slipped on the floor and hit her back on the toilet- She reports continued pain- She has been taking Tylenol- She reports pain continues- Tender to palpation- Will send muscle relaxer for a few days- If no relief, will order xray Overweight 548439355 E66 .3 - Patient reports she has not been moving around lately- Discussed diet and exercise [id number] JENNA ENCARNACION [address] [address] 06/09/2022 09:55:49 06/12/2022 12:22:46 Hypertensive disorder 86758176 I10 - Patient stable on Metoprolol - Continue as prescribed - Sees cardiologi st every 6 months- BP almost at goal <130/80- Denies problems with chest pain, SOB, palpitatio ns, edema or dizziness Hypothyroidism 90607117 E03.9 - Patient stable on Levothyrox ine- She will return for labs Coronary atherosclerosis 359868789 I25.119 - Patient sees cardiologi st every 6 months Hyperlipidemia 68582437 E78.5 - Patient stable on Rosuvastat in- Continue as prescribed - Discussed low fat diet- Will return for fasting labs Administra tion of influenza vaccine 97467171 Z23 - Flu vaccine given in office today Depression screening 171 729488 Z13.31 - Negative depression screening [id number] Shasta ghosh [address] [address] 06/14/2022 09:25:42 06/14/2022 16:10:43 Hyperlipidemia 99826569 E78.5 - Patient stable on Rosuvastat in- Continue as prescribed - Discussed low fat diet- Will return for fasting labs Hypothyroidism 99172154 E03.9 - Patient stable on Levothyrox ine- She will return for labs [id number] Anshul Soares [address] [address] 09/21/2022 11:22:31 09/21/2022 14:34:06 Hyperlipidemia 35413332 E78.5 - Patient stable on Rosuvastat in- Continue as prescribed - Discussed low fat diet- Will return for fasting labs [id number] JENNA ENCARNACION [address] [address] 02/14/2023 09:56:47 02/14/2023 16:48:10 Hypertensive disorder 53489822 I10 - Patient stable on Metoprolol - Continue as prescribed - Sees cardiologi st every 6 months- BP at goal <130/80- Denies problems with chest pain, SOB, palpitatio ns, edema or dizziness Coronary atherosclerosis 002419669 I25.119 - Patient sees cardiologi st every 6 months- Does take Brilinta and aspirin for history of bypass Hypothyroidism 33033942 E03.9 - Patient stable on Levothyrox ine- Labs in May were normal Hyperlipidemia 70235253 E78.5 - Patient stable on Rosuvastat in- Continue as prescribed - Will return for fasting labs. Will forward to cardiologi st upon receipt. According to his note, HDL should stay above 40 and LDL below 70 Depression screening 171 481821 Z13.31 - Negative depression screening Overweight 240640235 E66 .3 - She reports she has started water aerobics. She is aiming for 3x weekly Osteoarthr itis of knee 422128348 M17.9 - Sees Dr. Morfin- Recently received a cortisone injection which did not help- She states water aerobics are working well [id number] Babs Johnson MD [facility] [address] [place] [address] 08/20/2023 10:23:10 08/23/2023 14:39:52 Overweight 526563490 E66.3 Essential hypertension 47838541 I10 Hypothyroidism 43998115 E03.9 Hypertensive disorder 38 327546 I10 Hyperlipidemia 99911674 E78.5 [id number] Shasta ghosh MA [facility] [address] [place] [address] 02/15/2023 09:22:33 02/15/2023 21:43:56 Hyperlipidemia 70331301 E78.5 [id number] Lulu Perez DO [address] [address] 03/06/2024 10:28:42 03/06/2024 21:41:45 Hypertensive disorder 10686438 I10 The patient's blood pressure is well-contr olled, she notes that she recently had lab work from cardiology , we will try to obtain that to evaluate electrolyt es and renal function. The patient will also be getting additional lab work in the next several weeks because of surgery. Therefore I will not obtain lab work today with respect to complete metabolic panel. Hypothyroidism 51661504 E03.9 The patient does have a history of hypothyroi dism last thyroid function test was off, I will obtain TSH and free T4 today. Overweight 680617260 E66 .3 reviewed Hyperlipidemia 33890783 E78.5 Again cardiology obtain labs according to the patient several weeks ago. We will obtain these labs and review and make recommenda tions. Goal LDL in this patient should be as close to 70 as possible, the patient is on high-dose rosuvastat in which is appropriat e given her degree of coronary disease Depression screening 171 099735 Z13.31 Reviewed Coronary arteriosclerosis 28486683 I25.10 Patient is scheduled for stress test next Sunday. I await the recommenda tions patient is on a beta-block er and high-dose statin therapy as well as Brilinta. Continue all current care [id number] Lulu Perez [facility] [address] [place] [address] 04/23/2024 11:53:16 04/23/2024 14:36:37 Hypothyroidism 03689293 E03.9 Recheck TSH free T4 in 1 month [id number] Lulu Perez [facility] [address] [place] [address] 09/08/2024 10:56:04 09/08/2024 14:43:12 Essential hypertension 39730007 I10 The patient's blood pressure is well-contr olled will check renal function electrolyt es Hyperlipidemia 96810872 E78.5 Will check lipid panel liver function test no myositis type pain Hypothyroidism 43850249 E03.9 Will check TSH free to 4 today, if remains elevated, will make adjustment s Overweight 566031382 E66 .3 reviewed Health Concerns Section Related Observation LastModified by Organization Detai ls LastModified Time None Recorded Concern Status LastModified by Organization Details LastModified Time None Recorded Advance Directives Directive N: Payers Encounter Date Sequence Insurance Name Policy Number Policy Villatoro Covered Member ID Villatoro Member ID Guarantor Name 02/15/2023 1 [employer] (MEDICARE REPLACEMENT/ ADVANTAGE - HMO) [id number] Debbie Giraldo [id number] Debbie Giraldo 08/20/2023 1 [employer] (MEDICARE REPLACEMENT/ ADVANTAGE - HMO) [id number] Debbie Patelram [id number] Debbie Kern [place] 03/06/2024 1 [employer] (MEDICARE REPLACEMENT/ ADVANTAGE - HMO) [id number] Debbie Patelram [id number] Debbie Giraldo 04/23/2024 1 [employer] (MEDICARE REPLACEMENT/ ADVANTAGE - HMO) [id number] Debbie Kern [place] [id number] Debbie Kern [place] 09/08/2024 1 [employer] (MEDICARE REPLACEMENT/ ADVANTAGE - HMO) [id number] Debbie Patelram [id number] Debbie Giraldo Notes Date Note Type Note Provider Name and Address Organization Details Recorded Time 08/20/2023 text/html Here for htn and med refill Babs Johnson MD Attn: Accounting,[address], [place], [address], [facility] 08/22/2023 15:09:53 03/06/2024 text/html The patient is a very pleasant 78-year-old female past medical history of coronary atherosclerosis status post stent of the LAD, hypertension hyperlipidemia and hypothyroidism. Overall the patient is doing well, she also has a problem with bilateral knee pain and is scheduled for knee surgery in the near future. She will be seeing cardiology prior to this for cardiac clearance and stress test next Sunday. At this time she denies chest pain shortness of breath orthopnea or PND. Patient is in her usual state of health at this time and can afford meds without difficulty. At last encounter, the patient's thyroid function testing was off, her TSH was 10. I did discuss the dosing of the medication and to make sure that she does not take this medication and eat food, or take other medication within the first hour of consuming the drug. Patient's blood pressure is well-controlled and she denies symptoms of overt hypothyroidism such as hair loss cold intolerance or constipation. He the patient is up-to-date on mammography, which she had last month, and DEXA scan which she had last year. She is due for colonoscopy, she had a colonoscopy in 2018 with a recommendation of 2-year follow-up which she did not do. The patient will follow-up with me in May of this year so that we can arrange for colonoscopy, she does not want to get a colonoscopy immediately after her knee surgery. I certainly understand this, and the patient will make an appointment today. Lulu Perez DO Attn: Accounting,[address], [place], [address], [facility] 03/06/2024 11:08:12 04/23/2024 text/html The patient is a pleasant 78-year-old female follows up regarding abnormal thyroid function testing. Recently labs were obtained which showed on control thyroid. I called the patient ensure that she was taking the medication correctly and increase the dose. I had the patient come back today to make sure that there is no problems obtaining the medication affording the medication or taking the medication. I also reiterated the importance of being compliant which the patient is. I suspect she was just underdosed. At this time, see assessment and plan currently no chest pain palpitations nausea vomiting shortness of breath dizziness orthopnea or PND heat intolerance cold intolerance fatigue hair loss excetra Lulu Perez DO Attn: Accounting,204 [address] [facility], [place], [address], [facility] 04/23/2024 12:54:21 09/08/2024 text/html The patient is a very pleasant 79-year-old female past medical history of essential hypertension hyperlipidemia and acquired hypothyroidism. Patient had recent labs drawn by another physician, and at that time, the patient's free T4 was elevated at 1.74, which is just slightly above the excepted limits. Patient has subclinical hyperthyroidism which is most likely iatrogenic, and we will adjust her medications if the lab comes back abnormal again. Fortunately the patient denies any untoward side effects from hyperthyroidism such as palpitations sweating diarrhea or weight loss. Patient also denies anxiety. Patient's blood pressure is beautifully controlled today, she is compliant with all of her meds. At this time she denies chest pain palpitations nausea vomit shortness of breath dizziness orthopnea or PND. Other than this, the patient takes medications for hyperlipidemia no muscle pain will check all labs today see assessment and plan Lulu Perez DO Attn: Accounting,204 [address] [facility] [facility], [place], [address], [facility] 09/08/2024 11:05:39 OBGyn Episode No OBEpisode recorded.
--- OUTSIDE RECORDS SUMMARY | 2024-12-19 09:52 | XMS_ITS ---
Date Note Type Note Provider Name and Address Organization Details Recorded Time 01/18/2023 text/html 01/18/23CC : [facility] follow [id number] white woman with a past medical history of CAD s/p coronary artery bypass grafting (2010) for left main coronary artery disease s/p left main stent (2015), hypertension, dyslipidemia presents today for 6 month follow-up. She was last seen in the clinic on 07/11/22, since then she is doing wellShe denies ER visits and hospitalizations since she was last seen.Last LDL was 73 done on 11/17/21.Pt takes rosuvastatin 20 mg. Today reports:Denies chest pain.Denies shortness of breath at rest. Has mild dyspnea on exertion.No orthopnea. No PNDs.Denies heart palpitations.Denies dizziness. Denies syncope or near syncope.No ankle or leg edema.No major bleeding events.No reported side effects from medications. Taking medications as prescribed with no missed doses.Denies snoring, daytime somnolence and AM headache.*Last LDL was 62 done on 10/27/21 .Pt takes rosuvastatin 40 mg. Previously:She is exercising regularly without any problem. She twisted her knee two weeks ago and can not walk but before that she is doing good walks without problem. *Had positive stress test done on 11/15/21 with ischemia in anterior area. Normal LV systolic function. Exercise tolerance: Above Average. *Had ECHO done in 12/06/20 showed LV chamber size is normal,LV wall thickness is normal,the estimated LVEF is 55-60%(normal),there is increased left atrial pressure and Grade II diastolic dysfunction, there is mild aortic valve sclerosis without significant stenosis,there is mild aortic regurgitation,there is mild thickening of the mitral valve anterior leaflet,there is trace tricuspid regurgitation. However she reports she feels her dyspnea on exertion is somewhat worse d/t inactivity. Had LHC at [facility] on 11/20/18 revealing a patent left main stent with patent graft. *CATH 09/29/15 : Two vessel severe coronary artery disease, with proximal 95% stenosis involving the left main. She underwent LM stent, did well. *Had US, DUPLEX, ARTERIAL, LOWER EXTREMITY 03/31/16 : No significant lower extremity peripheral arterial disease detected.Results from this visit, or from the past:07/07/19 LIPID: TC 153, TR 178, HDL 51, LDL 66 CMP, serum or plasma 07-07-2019 07/07/19 CMP: NA 143, K 4.0, CL 107, CO2 26, GLU 95, BUN 15, CR 1.0, AST 19, ALT 13 CBC w/ diff 10-18-2018 10/18/18: HB 15.6, HT 47.5 10/18/18: TC 146 ,TG 110, HDL 61 ,LDL 63, 10/18/18: HB 15.6 ,HT 47.5, 10/18/18: Na 146, K 4.5 ,CL 109,CO2 25 , GLU 109, BUN 21, CR 1.1, AST 18, ALT 14 04/09/18: NA: 145, K: 4.3, CL: 109, CO2: 26, GLU: 99, BUN: 20, AST: 19, ALT: 13, CR: 0.9 04/09/18: TC: 149, TR: 143, HDL: 52, LDL: 68 04/09/18: WBC: 4.7, RBC: 4.64, HGB: 15.1, HCT: 44.8, PLT: 177 04/09/18: TSH 0.61 04/05/17: HB 16.1, HT 47.6 04/05/17: Na 143 ,K 4.0 ,CL 106 ,CO2 25 ,GLU 104 ,BUN 20 ,CR 0.9 ,CK ,TC 155 ,TG 165 ,HDL 54 ,LDL 68 ,AST 21 ,ALT 14 10/06/16: TC 152, HDL 51, TR 157, LDL 70. 03/10/16 : Na 144 ,K 4.7 ,CL 105 ,CO2 23 ,GLU 86,BUN 21,CR 1.09,HB 14.2 , HT 42.3 ,TC 149 ,TG 153 ,HDL 50 ,LDL 68 , AST 27 ,ALT 19 , EKG, 10/28/19: Sinus bradycardia; EKG, 04/29/19: Sinus Bradycardia. low voltage chest leads. Poor R progression in chest leads. Angiogram 11/20/18 : Peripheral Angio: 11/20/18 One vessel coronary artery disease, with ostial involving the left circumflex. Patent LM stent. Left internal 11/08/18 TRD- Positive stress test. Reversible defect consistent with ischemia in the lateral area. Normal LV systolic function. LVEF 60%. EKG, 10/22/18 - sinus bradycardia, low voltage, chest leads. [facility] [place] EKG 04/22/18 : low voltage, chest leads. Flat T waves, anterior leads EK10/22/17 Anteroseptal myocardial infarction, age undetermined. EKG 04/20/17 : sinus bradycardia. Otherwise within normal limits EKG 09-26-2016 sinus rhythm (slow) P normal QRS septal infarct Q > 40 ms in V2 Q/R 1/[address]-T normal conclusion abnormal ECG EK03/28/16 Sinus rhythm (slow). P: normal. QRS: low voltage in precordial leads. ST-T; normal. conclusion: ECG without significant abnormalities. EK09/26/16 sinus rhythm (slow) P normal QRS septal infarct Q > 40 ms in V2 Q/R 1/[address]-T normal conclusion abnormal ECG 11/08/18 Arterial Duplex: Mild PVD TDM 11/15/18. Reversible defect consistent with ischemia in the lateral area. Normal LV systolic function. LVEF 60%. Treadmill Nuclear Stress Test 10/03/16 : Negative stress test for ischemia. Normal LV systolic function. Artifact noted. No previous study to compare. LVEF 79%. 07/03/18 ECHO: LV chamber size is normal. LV wall thickness is mildly increased. There is normal global systolic function and contractility. The estimated left ventricle ejection fraction is 55-60%(normal). There is mild aortic regurgitation. There is trace tricuspid regurgitation. US, DUPLEX, ARTERIAL, LOWER EXTREMITY 03/31/16 : No significant lower extremity peripheral arterial disease detected. No significant lower extremity peripheral arterial disease detected. 09-29-2015 Two vessel severe coronary artery disease, with proximal 95% stenosis involving the left main. Left internal mammary artery graft to the left anterior descending is patient but is a small vessel with reduced flow. Saphenous vein graft to the obtuse marginal is patent and indirectly supplies left anterior descending. Normal left ventricular size and systolic function. Osmany Winston MD [address] [place], [address], [place] - [facility] 01/18/2023 15:24:42 08/13/2023 text/html 08/13/23CC : Car [facility] follow up dyspnea on [id number] white woman with a past medical history of CAD s/p coronary artery bypass grafting (2010) for left main coronary artery disease s/p left main stent (2016), hypertension, dyslipidemia presents today for 6 month follow-up. She was last seen in the clinic on 01/18/23, since then she is doing wellShe denies ER visits and hospitalizations since she was last seen. Today reports:no ccDenies chest pain.Denies shortness of breath at rest. Has mild dyspnea on exertion.No orthopnea. No PNDs.Denies heart palpitations.Denies dizziness. Denies syncope or near syncope.No ankle or leg edema.No major bleeding events.No reported side effects from medications. Taking medications as prescribed with no missed doses.Denies snoring, daytime somnolence and AM headache.*Last LDL was 73 done on 11/17/21.Pt takes rosuvastatin 20 mg. Previously:She is exercising regularly without any problem. She twisted her knee two weeks ago and can not walk but before that she is doing good walks without problem. *Had positive stress test done on 11/15/21 with ischemia in anterior area. Normal LV systolic function. Exercise tolerance: Above Average. *Had ECHO done in 12/06/20 showed LV chamber size is normal,LV wall thickness is normal,the estimated LVEF is 55-60%(normal),there is increased left atrial pressure and Grade II diastolic dysfunction, there is mild aortic valve sclerosis without significant stenosis,there is mild aortic regurgitation,there is mild thickening of the mitral valve anterior leaflet,there is trace tricuspid regurgitation. However she reports she feels her dyspnea on exertion is somewhat worse d/t inactivity. Had LHC at [facility] on 11/20/18 revealing a patent left main stent with patent graft. *CATH 09/29/15 : Two vessel severe coronary artery disease, with proximal 95% stenosis involving the left main. She underwent LM stent, did well. *Had US, DUPLEX, ARTERIAL, LOWER EXTREMITY 03/31/16 : No significant lower extremity peripheral arterial disease detected.Results from this visit, or from the past:07/07/19 LIPID: TC 153, TR 178, HDL 51, LDL 66 CMP, serum or plasma 07-07-2019 07/07/19 CMP: NA 143, K 4.0, CL 107, CO2 26, GLU 95, BUN 15, CR 1.0, AST 19, ALT 13 CBC w/ diff 10-18-2018 10/18/18: HB 15.6, HT 47.5 10/18/18: TC 146 ,TG 110, HDL 61 ,LDL 63, 10/18/18: HB 15.6 ,HT 47.5, 10/18/18: Na 146, K 4.5 ,CL 109,CO2 25 , GLU 109, BUN 21, CR 1.1, AST 18, ALT 14 04/09/18: NA: 145, K: 4.3, CL: 109, CO2: 26, GLU: 99, BUN: 20, AST: 19, ALT: 13, CR: 0.9 04/09/18: TC: 149, TR: 143, HDL: 52, LDL: 68 04/09/18: WBC: 4.7, RBC: 4.64, HGB: 15.1, HCT: 44.8, PLT: 177 04/09/18: TSH 0.61 04/05/17: HB 16.1, HT 47.6 04/05/17: Na 143 ,K 4.0 ,CL 106 ,CO2 25 ,GLU 104 ,BUN 20 ,CR 0.9 ,CK ,TC 155 ,TG 165 ,HDL 54 ,LDL 68 ,AST 21 ,ALT 14 10/06/16: TC 152, HDL 51, TR 157, LDL 70. 03/10/16 : Na 144 ,K 4.7 ,CL 105 ,CO2 23 ,GLU 86,BUN 21,CR 1.09,HB 14.2 , HT 42.3 ,TC 149 ,TG 153 ,HDL 50 ,LDL 68 , AST 27 ,ALT 19 , EKG, 10/28/19: Sinus bradycardia; EKG, 04/29/19: Sinus Bradycardia. low voltage chest leads. Poor R progression in chest leads. Angiogram 11/20/18 : Peripheral Angio: 11/20/18 One vessel coronary artery disease, with ostial involving the left circumflex. Patent LM stent. Left internal 11/08/18 TRD- Positive stress test. Reversible defect consistent with ischemia in the lateral area. Normal LV systolic function. LVEF 60%. EKG, 10/22/18 - sinus bradycardia, low voltage, chest leads. [facility] [place] EKG 04/22/18 : low voltage, chest leads. Flat T waves, anterior leads EK10/22/17 Anteroseptal myocardial infarction, age undetermined. EKG 04/20/17 : sinus bradycardia. Otherwise within normal limits EKG 09-26-2016 sinus rhythm (slow) P normal QRS septal infarct Q > 40 ms in V2 Q/R 1/[address]-T normal conclusion abnormal ECG EK03/28/16 Sinus rhythm (slow). P: normal. QRS: low voltage in precordial leads. ST-T; normal. conclusion: ECG without significant abnormalities. EK09/26/16 sinus rhythm (slow) P normal QRS septal infarct Q > 40 ms in V2 Q/R 1/[address]-T normal conclusion abnormal ECG 11/08/18 Arterial Duplex: Mild PVD TDM 11/15/18. Reversible defect consistent with ischemia in the lateral area. Normal LV systolic function. LVEF 60%. Treadmill Nuclear Stress Test 10/03/16 : Negative stress test for ischemia. Normal LV systolic function. Artifact noted. No previous study to compare. LVEF 79%. 07/03/18 ECHO: LV chamber size is normal. LV wall thickness is mildly increased. There is normal global systolic function and contractility. The estimated left ventricle ejection fraction is 55-60%(normal). There is mild aortic regurgitation. There is trace tricuspid regurgitation. US, DUPLEX, ARTERIAL, LOWER EXTREMITY 03/31/16 : No significant lower extremity peripheral arterial disease detected. No significant lower extremity peripheral arterial disease detected. 09-29-2015 Two vessel severe coronary artery disease, with proximal 95% stenosis involving the left main. Left internal mammary artery graft to the left anterior descending is patient but is a small vessel with reduced flow. Saphenous vein graft to the obtuse marginal is patent and indirectly supplies left anterior descending. Normal left ventricular size and systolic function. MARKEL Brand - [facility] 08/13/2023 15:10:32 01/31/2024 text/html 01/31/24CC : Car diac follow up dyspnea on [id number] white woman with a past medical history of CAD s/p coronary artery bypass grafting (2010) for left main coronary artery disease s/p left main stent (2015), hypertension, dyslipidemia presents today for follow-up with ECHO results. She was last seen in the clinic on 08/13/23, since then she has had a surgery for SCC of the valva. She denied chest pain or dyspnea on exertion. *Last LDL was 62 done on 10/27/21.Pt takes rosuvastatin 40 mg.She denies ER visits and hospitalizations since she was last seen. Today reports: pt states concerns with multiple blood thinners.Denies chest pain.Denies shortness of breath at rest. Has mild dyspnea on exertion.No orthopnea. No PNDs.Denies heart palpitations.Denies dizziness. Denies syncope or near syncope.No ankle or leg edema.No major bleeding events.No reported side effects from medications. Taking medications as prescribed with no missed doses.Denies snoring, daytime somnolence and AM headache.*Last LDL was 62 done on 10/27/21.Pt takes rosuvastatin 40 mg. ECHO 08/22/23:LV chamber size is normal, LVEF 55-60%, LV relaxation is impaired, the aortic valve is mildly calcified, there is mild aortic root calcification, there is moderate aortic regurgitation, degenerative aortic valve, cannot exclude vegetation/thrombus/ma ss.there is mild calcification of the mitral valve leaflets, there is a dense posterior mitral annular calcification, there is mild tricuspid regurgitation. Previously:She is exercising regularly without any problem. She twisted her knee two weeks ago and can not walk but before that she is doing good walks without problem. *Had positive stress test done on 11/15/21 with ischemia in anterior area. Normal LV systolic function. Exercise tolerance: Above Average. However she reports she feels her dyspnea on exertion is somewhat worse d/t inactivity. *Had LHC at [facility] on 11/20/18 revealing a patent left main stent with patent graft. *CATH 09/29/15 : Two vessel severe coronary artery disease, with proximal 95% stenosis involving the left main. She underwent LM stent, did well. *Had US, DUPLEX, ARTERIAL, LOWER EXTREMITY 03/31/16 : No significant lower extremity peripheral arterial disease detected.Results from this visit, or from the past:07/07/19 LIPID: TC 153, TR 178, HDL 51, LDL 66 CMP, serum or plasma 07-07-2019 07/07/19 CMP: NA 143, K 4.0, CL 107, CO2 26, GLU 95, BUN 15, CR 1.0, AST 19, ALT 13 CBC w/ diff 10-18-2018 10/18/18: HB 15.6, HT 47.5 10/18/18: TC 146 ,TG 110, HDL 61 ,LDL 63, 10/18/18: HB 15.6 ,HT 47.5, 10/18/18: Na 146, K 4.5 ,CL 109,CO2 25 , GLU 109, BUN 21, CR 1.1, AST 18, ALT 14 04/09/18: NA: 145, K: 4.3, CL: 109, CO2: 26, GLU: 99, BUN: 20, AST: 19, ALT: 13, CR: 0.9 04/09/18: TC: 149, TR: 143, HDL: 52, LDL: 68 04/09/18: WBC: 4.7, RBC: 4.64, HGB: 15.1, HCT: 44.8, PLT: 177 04/09/18: TSH 0.61 04/05/17: HB 16.1, HT 47.6 04/05/17: Na 143 ,K 4.0 ,CL 106 ,CO2 25 ,GLU 104 ,BUN 20 ,CR 0.9 ,CK ,TC 155 ,TG 165 ,HDL 54 ,LDL 68 ,AST 21 ,ALT 14 10/06/16: TC 152, HDL 51, TR 157, LDL 70. 03/10/16 : Na 144 ,K 4.7 ,CL 105 ,CO2 23 ,GLU 86,BUN 21,CR 1.09,HB 14.2 , HT 42.3 ,TC 149 ,TG 153 ,HDL 50 ,LDL 68 , AST 27 ,ALT 19 , EKG, 10/28/19: Sinus bradycardia; EKG, 04/29/19: Sinus Bradycardia. low voltage chest leads. Poor R progression in chest leads. Angiogram 11/20/18 : Peripheral Angio: 11/20/18 One vessel coronary artery disease, with ostial involving the left circumflex. Patent LM stent. Left internal 11/08/18 TRD- Positive stress test. Reversible defect consistent with ischemia in the lateral area. Normal LV systolic function. LVEF 60%. EKG, 10/22/18 - sinus bradycardia, low voltage, chest leads. [facility] [place] EKG 04/22/18 : low voltage, chest leads. Flat T waves, anterior leads EK10/22/17 Anteroseptal myocardial infarction, age undetermined. EKG 04/20/17 : sinus bradycardia. Otherwise within normal limits EKG 09-26-2016 sinus rhythm (slow) P normal QRS septal infarct Q > 40 ms in V2 Q/R 1/[address]-T normal conclusion abnormal ECG EK03/28/16 Sinus rhythm (slow). P: normal. QRS: low voltage in precordial leads. ST-T; normal. conclusion: ECG without significant abnormalities. EK09/26/16 sinus rhythm (slow) P normal QRS septal infarct Q > 40 ms in V2 Q/R 1/[address]-T normal conclusion abnormal ECG 11/08/18 Arterial Duplex: Mild PVD TDM 11/15/18. Reversible defect consistent with ischemia in the lateral area. Normal LV systolic function. LVEF 60%. Treadmill Nuclear Stress Test 10/03/16 : Negative stress test for ischemia. Normal LV systolic function. Artifact noted. No previous study to compare. LVEF 79%. 07/03/18 ECHO: LV chamber size is normal. LV wall thickness is mildly increased. There is normal global systolic function and contractility. The estimated left ventricle ejection fraction is 55-60%(normal). There is mild aortic regurgitation. There is trace tricuspid regurgitation. US, DUPLEX, ARTERIAL, LOWER EXTREMITY 03/31/16 : No significant lower extremity peripheral arterial disease detected. No significant lower extremity peripheral arterial disease detected. 09-29-2015 Two vessel severe coronary artery disease, with proximal 95% stenosis involving the left main. Left internal mammary artery graft to the left anterior descending is patient but is a small vessel with reduced flow. Saphenous vein graft to the obtuse marginal is patent and indirectly supplies left anterior descending. Normal left ventricular size and systolic function. Jenny reed, [place] - [facility] 05/13/2024 11:55:34 05/13/2024 text/html 05/13/24CC : Cardiac follow up , leg [id number] white woman with a past medical history of CAD s/p coronary artery bypass grafting (2010) for left main coronary artery disease s/p left main stent (2015), hypertension, dyslipidemia presents today for 3 month follow-up with stress test and Labs results. She was last seen in the clinic on 01/31/24, since then she had knee surgery few week agoShe denies ER visits and hospitalizations since she was last seen. Denies chest pain.Denies shortness of breath at rest. Has mild dyspnea on exertion.No orthopnea. No PNDs.Denies heart palpitations.Denies dizziness. Denies syncope or near syncope.No ankle or leg edema.No major bleeding events.No reported side effects from medications. Taking medications as prescribed with no missed doses.Denies snoring, daytime somnolence and AM headache.*Last LDL was 60 done on 02/25/24.Pt takes rosuvastatin 40 mg. *Had Negative Lexiscan stress test on 03/11/24 with Normal LV systolic function. LVEF: 79%. 02/26/2024Lipid-CHOL 151 TRIG 179 HDL 55 LDL 60CBC-WBC 4.2 RBC 4.23 HGB 14.5 HCT 43.4 PLT 188,[id number]-8.1 Previously:*She had a surgery for SCC of the valva. She denied chest pain or dyspnea on exertion. *Had ECHO on 08/22/23 showed LV chamber size is normal, LVEF 55-60%, LV relaxation is impaired, the aortic valve is mildly calcified, there is mild aortic root calcification, there is moderate aortic regurgitation, degenerative aortic valve, cannot exclude vegetation/thrombus/ma ss.there is mild calcification of the mitral valve leaflets, there is a dense posterior mitral annular calcification, there is mild tricuspid regurgitation. She is exercising regularly without any problem. She twisted her knee two weeks ago and can not walk but before that she is doing good walks without problem. *Had positive stress test done on 11/15/21 with ischemia in anterior area. Normal LV systolic function. Exercise tolerance: Above Average. However she reports she feels her dyspnea on exertion is somewhat worse d/t inactivity. *Had LHC at [facility] on 11/20/18 revealing a patent left main stent with patent graft. *CATH 09/29/15 : Two vessel severe coronary artery disease, with proximal 95% stenosis involving the left main. She underwent LM stent, did well. *Had US, DUPLEX, ARTERIAL, LOWER EXTREMITY 03/31/16 : No significant lower extremity peripheral arterial disease detected.Results from this visit, or from the past:07/07/19 LIPID: TC 153, TR 178, HDL 51, LDL 66 CMP, serum or plasma 07-07-2019 07/07/19 CMP: NA 143, K 4.0, CL 107, CO2 26, GLU 95, BUN 15, CR 1.0, AST 19, ALT 13 CBC w/ diff 10-18-2018 10/18/18: HB 15.6, HT 47.5 10/18/18: TC 146 ,TG 110, HDL 61 ,LDL 63, 10/18/18: HB 15.6 ,HT 47.5, 10/18/18: Na 146, K 4.5 ,CL 109,CO2 25 , GLU 109, BUN 21, CR 1.1, AST 18, ALT 14 04/09/18: NA: 145, K: 4.3, CL: 109, CO2: 26, GLU: 99, BUN: 20, AST: 19, ALT: 13, CR: 0.9 04/09/18: TC: 149, TR: 143, HDL: 52, LDL: 68 04/09/18: WBC: 4.7, RBC: 4.64, HGB: 15.1, HCT: 44.8, PLT: 177 04/09/18: TSH 0.61 04/05/17: HB 16.1, HT 47.6 04/05/17: Na 143 ,K 4.0 ,CL 106 ,CO2 25 ,GLU 104 ,BUN 20 ,CR 0.9 ,CK ,TC 155 ,TG 165 ,HDL 54 ,LDL 68 ,AST 21 ,ALT 14 10/06/16: TC 152, HDL 51, TR 157, LDL 70. 03/10/16 : Na 144 ,K 4.7 ,CL 105 ,CO2 23 ,GLU 86,BUN 21,CR 1.09,HB 14.2 , HT 42.3 ,TC 149 ,TG 153 ,HDL 50 ,LDL 68 , AST 27 ,ALT 19 , EKG, 10/28/19: Sinus bradycardia; EKG, 04/29/19: Sinus Bradycardia. low voltage chest leads. Poor R progression in chest leads. Angiogram 11/20/18 : Peripheral Angio: 11/20/18 One vessel coronary artery disease, with ostial involving the left circumflex. Patent LM stent. Left internal 11/08/18 TRD- Positive stress test. Reversible defect consistent with ischemia in the lateral area. Normal LV systolic function. LVEF 60%. EKG, 10/22/18 - sinus bradycardia, low voltage, chest leads. [facility] [place] EKG 04/22/18 : low voltage, chest leads. Flat T waves, anterior leads EK10/22/17 Anteroseptal myocardial infarction, age undetermined. EKG 04/20/17 : sinus bradycardia. Otherwise within normal limits EKG 09-26-2016 sinus rhythm (slow) P normal QRS septal infarct Q > 40 ms in V2 Q/R 1/[address]-T normal conclusion abnormal ECG EK03/28/16 Sinus rhythm (slow). P: normal. QRS: low voltage in precordial leads. ST-T; normal. conclusion: ECG without significant abnormalities. EK09/26/16 sinus rhythm (slow) P normal QRS septal infarct Q > 40 ms in V2 Q/R 1/[address]-T normal conclusion abnormal ECG 11/08/18 Arterial Duplex: Mild PVD TDM 11/15/18. Reversible defect consistent with ischemia in the lateral area. Normal LV systolic function. LVEF 60%. Treadmill Nuclear Stress Test 10/03/16 : Negative stress test for ischemia. Normal LV systolic function. Artifact noted. No previous study to compare. LVEF 79%. 07/03/18 ECHO: LV chamber size is normal. LV wall thickness is mildly increased. There is normal global systolic function and contractility. The estimated left ventricle ejection fraction is 55-60%(normal). There is mild aortic regurgitation. There is trace tricuspid regurgitation. US, DUPLEX, ARTERIAL, LOWER EXTREMITY 03/31/16 : No significant lower extremity peripheral arterial disease detected. No significant lower extremity peripheral arterial disease detected. 09-29-2015 Two vessel severe coronary artery disease, with proximal 95% stenosis involving the left main. Left internal mammary artery graft to the left anterior descending is patient but is a small vessel with reduced flow. Saphenous vein graft to the obtuse marginal is patent and indirectly supplies left anterior descending. Normal left ventricular size and systolic function. Osmany Winston MD [address] [place], [address], [facility] - [facility] 05/13/2024 18:42:07 10/21/2024 text/html *Obtain echo02/0 01/09CC : Cardiac follow [id number] white woman with a past medical history of CAD s/p coronary artery bypass grafting (2010) for left main coronary artery disease s/p left main stent (2016), hypertension, dyslipidemia presents today for 6 month follow-up. She was last seen in the clinic on 05/13/24, since then she had knee surgery, [place]arb[place]he denies ER visits and hospitalizations since she was last seen. Today reports:no ccDenies chest pain.Denies shortness of breath at rest. Has mild dyspnea on exertion.No orthopnea. No PNDs.Has occasional heart palpitations.Has dizziness. Denies syncope or near syncope.No ankle or leg edema.No major bleeding events.No reported side effects from medications. Taking medications as prescribed with no missed doses.Denies snoring, daytime somnolence and AM headache.*Last LDL was 60 done on 02/26/24.Pt takes rosuvastatin 40 mg. *Had Negative Lexiscan stress test on 03/11/24 with Normal LV systolic function. LVEF: 79%. 02/26/2024Lipid-CHOL 151 TRIG 179 HDL 55 LDL 60CBC-WBC 4.2 RBC 4.23 HGB 14.5 HCT 43.4 PLT 188,[id number]-9.1 *She had a surgery for SCC of the valva. She denied chest pain or dyspnea on exertion. *Had ECHO on 08/22/23 showed LV chamber size is normal, LVEF 55-60%, LV relaxation is impaired, the aortic valve is mildly calcified, there is mild aortic root calcification, there is moderate aortic regurgitation, degenerative aortic valve, cannot exclude vegetation/thrombus/ma ss.there is mild calcification of the mitral valve leaflets, there is a dense posterior mitral annular calcification, there is mild tricuspid regurgitation. She twisted her knee two weeks ago and can not walk but before that she is doing good walks without problem. *Had positive stress test done on 11/15/21 with ischemia in anterior area. Normal LV systolic function. Exercise tolerance: Above Average. However she reports she feels her dyspnea on exertion is somewhat worse d/t inactivity. *Had LHC at [facility] on 11/20/18 revealing a patent left main stent with patent graft. *CATH 09/29/15 : Two vessel severe coronary artery disease, with proximal 95% stenosis involving the left main. She underwent LM stent, did well. *Had US, DUPLEX, ARTERIAL, LOWER EXTREMITY 03/31/16 : No significant lower extremity peripheral arterial disease detected.Results from this visit, or from the past:07/07/19 LIPID: TC 153, TR 178, HDL 51, LDL 66 CMP, serum or plasma 07-07-2019 07/07/19 CMP: NA 143, K 4.0, CL 107, CO2 26, GLU 95, BUN 15, CR 1.0, AST 19, ALT 13 CBC w/ diff 10-18-2018 10/18/18: HB 15.6, HT 47.5 10/18/18: TC 146 ,TG 110, HDL 61 ,LDL 63, 10/18/18: HB 15.6 ,HT 47.5, 10/18/18: Na 146, K 4.5 ,CL 109,CO2 25 , GLU 109, BUN 21, CR 1.1, AST 18, ALT 14 04/09/18: NA: 145, K: 4.3, CL: 109, CO2: 26, GLU: 99, BUN: 20, AST: 19, ALT: 13, CR: 0.9 04/09/18: TC: 149, TR: 143, HDL: 52, LDL: 68 04/09/18: WBC: 4.7, RBC: 4.64, HGB: 15.1, HCT: 44.8, PLT: 177 04/09/18: TSH 0.61 04/05/17: HB 16.1, HT 47.6 04/05/17: Na 143 ,K 4.0 ,CL 106 ,CO2 25 ,GLU 104 ,BUN 20 ,CR 0.9 ,CK ,TC 155 ,TG 165 ,HDL 54 ,LDL 68 ,AST 21 ,ALT 14 10/06/16: TC 152, HDL 51, TR 157, LDL 70. 03/10/16 : Na 144 ,K 4.7 ,CL 105 ,CO2 23 ,GLU 86,BUN 21,CR 1.09,HB 14.2 , HT 42.3 ,TC 149 ,TG 153 ,HDL 50 ,LDL 68 , AST 27 ,ALT 19 , EKG, 10/28/19: Sinus bradycardia; EKG, 04/29/19: Sinus Bradycardia. low voltage chest leads. Poor R progression in chest leads. Angiogram 11/20/18 : Peripheral Angio: 11/20/18 One vessel coronary artery disease, with ostial involving the left circumflex. Patent LM stent. Left internal 11/08/18 TRD- Positive stress test. Reversible defect consistent with ischemia in the lateral area. Normal LV systolic function. LVEF 60%. EKG, 10/22/18 - sinus bradycardia, low voltage, chest leads. [facility] [place] EKG 04/22/18 : low voltage, chest leads. Flat T waves, anterior leads EK10/22/17 Anteroseptal myocardial infarction, age undetermined. EKG 04/20/17 : sinus bradycardia. Otherwise within normal limits EKG 09-26-2016 sinus rhythm (slow) P normal QRS septal infarct Q > 40 ms in V2 Q/R 1/[address]-T normal conclusion abnormal ECG EK03/28/16 Sinus rhythm (slow). P: normal. QRS: low voltage in precordial leads. ST-T; normal. conclusion: ECG without significant abnormalities. EK09/26/16 sinus rhythm (slow) P normal QRS septal infarct Q > 40 ms in V2 Q/R 1/[address]-T normal conclusion abnormal ECG 11/08/18 Arterial Duplex: Mild PVD TDM 11/15/18. Reversible defect consistent with ischemia in the lateral area. Normal LV systolic function. LVEF 60%. Treadmill Nuclear Stress Test 10/03/16 : Negative stress test for ischemia. Normal LV systolic function. Artifact noted. No previous study to compare. LVEF 79%. 07/03/18 ECHO: LV chamber size is normal. LV wall thickness is mildly increased. There is normal global systolic function and contractility. The estimated left ventricle ejection fraction is 55-60%(normal). There is mild aortic regurgitation. There is trace tricuspid regurgitation. US, DUPLEX, ARTERIAL, LOWER EXTREMITY 03/31/16 : No significant lower extremity peripheral arterial disease detected. No significant lower extremity peripheral arterial disease detected. 09-29-2015 Two vessel severe coronary artery disease, with proximal 95% stenosis involving the left main. Left internal mammary artery graft to the left anterior descending is patient but is a small vessel with reduced flow. Saphenous vein graft to the obtuse marginal is patent and indirectly supplies left anterior descending. Normal left ventricular size and systolic function. Osmany Winston MD [address] [facility], [place], [id number], [place] [facility] 10/21/2024 17:22:00 OBGyn Episode No OBEpisode recorded.
[2024-12-19 09:53] LABS: Blood Urea Nitrogen 20 mg/dL (8-26); Carbon Dioxide 25 mmol/L (22-30); Chloride 107 mmol/L (98-109); Estimated Glomerular Filt Rate 60; Glucose 81 mg/dL (70-105); Ionized Calcium (POC) 1.29 mmol/L (1.11-1.31); Potassium 3.9 mmol/L (3.5-4.9); Sodium 142 mmol/L (138-146)
== END 2024-12-19 09:39 | disposition home or self-care (01) ==
LOC: ANHLAB 09:39
PROVIDERS: Visit Provider Internal Medicine Hematology & Oncology
DX: D75.1 Secondary polycythemia (principal)
CPT/HCPCS: 36415; 80047; 85025